=== PATIENT | female | born 1985 | race Caucasian/White ===

== ENCOUNTER 2022-02-07 07:00 | Observation (INO) | payer OTHER ==
[2022-02-07] MEDS ORDERED: ONDANSETRON 4 MG/2 ML VIAL IVP STA (07:26)
[2022-02-07] MEDS ORDERED: SODIUM CHLORIDE 0.9% 1,000 ML IV STA (07:26)
[2022-02-07] MEDS ORDERED: KETOROLAC 15 MG/ML 1 ML VIAL IVP STA (07:26)
--- NOTE | 2022-02-07 07:45 | XR ---
EXAMINATION TYPE: XR chest 2V DATE OF EXAM: 02/07/2022 COMPARISON: NONE TECHNIQUE: PA and lateral views submitted. HISTORY: Chest pain FINDINGS: The lungs are clear and there is no pneumothorax, pleural effusion, or focal pneumonia. Heart size normal. Hypertrophic change of the spine. IMPRESSION: 1. No acute process.
[2022-02-07 07:50] LABS: Basophils % (A) 0 %; Eosinophils # (A) 0.2 k/uL (0-0.7); Eosinophils % (A) 2 %; HCT 38.4 % (34.0-46.0); HGB 12.8 gm/dL (11.4-16.0); Lymphocytes # (A) 1.9 k/uL (1.0-4.8); Lymphocytes % (A) 18 %; MCHC 33.5 g/dL (31.0-37.0); MCV 86.5 fL (80.0-100.0); Monocytes # (A) 0.5 k/uL (0-1.0); Monocytes % (A) 4 %; Neutrophils % (A) 75 %; Platelet Count 269 k/uL (150-450); RBC 4.43 m/uL (3.80-5.40); RDW 12.9 % (11.5-15.5); WBC 10.6 k/uL (3.8-10.6)
[2022-02-07 08:22] LABS: ALT 15 U/L (4-34); AST 16 U/L (14-36); African American GFR (CKD) >90 (>60 ml/min/1.73 sqM); Albumin 3.6 g/dL (3.5-5.0); Alkaline Phosphatase 70 U/L (38-126); Anion Gap 7 mmol/L; Blood Urea Nitrogen 13 mg/dL (7-17); Calcium 8.8 mg/dL (8.4-10.2); Carbon Dioxide 24 mmol/L (22-30); Chloride 105 mmol/L (98-107); Glucose 170 mg/dL (74-99); Lipase 66 U/L (23-300); Magnesium 1.9 mg/dL (1.6-2.3); Non-African American GFR(CKD) >90 (>60 ml/min/1.73 sqM); Potassium 4.2 mmol/L (3.5-5.1); Sodium 136 mmol/L (137-145); Total Bilirubin 0.7 mg/dL (0.2-1.3); Total Protein 6.5 g/dL (6.3-8.2)
--- NOTE | 2022-02-07 08:23 | US ---
EXAMINATION TYPE: US gallbladder DATE OF EXAM: 02/07/2022 COMPARISON: NONE CLINICAL HISTORY: pain. chest pain EXAM MEASUREMENTS: Liver Length: 16.1 cm Gallbladder Wall: 0.4 cm CBD: 0.3 cm Right Kidney: 12.5 x 5.0 x 6.7 cm Pancreas: visualized portions wnl Liver: wnl Gallbladder: stone near neck that does not move with multiple patient positions Evidence for sonographic Yusuf's sign: Yes CBD: wnl Right Kidney: No hydronephrosis or masses seen IMPRESSION: There is a gallstone near the gallbladder neck. Gallbladder wall is mildly thickened at 4 mm correlate for mild cholecystitis.
[2022-02-07] MEDS ORDERED: NALOXONE 0.4 MG/ML 1 ML VIAL IV PRN (09:02)
[2022-02-07] MEDS ORDERED: ONDANSETRON 4 MG/2 ML VIAL IVP PRN (09:02)
--- NOTE | 2022-02-07 09:02 | ED ---
General Adult HPI - General Chief complaint: Chest Pain Stated complaint: chest pain Time Seen by Provider: 02/07/22 07:10 Source: patient, RN notes reviewed Mode of arrival: ambulatory Limitations: no limitations - History of Present Illness Initial comments: 37-year-old female presents emergency Department chief complaint right-sided abdominal pain right-sided chest pain. Patient states started around 10 PM last has been constant pain. Patient states that the pain is unalleviated feels a squeezing pain. Patient does admit slight nausea, indigestion. Patient offers no other complaints. - Related Data Allergies Allergy/AdvReac Type Severity Reaction Status Date / Time No Known Allergies Allergy Verified 02/07/22 07:08 Review of Systems ROS Statement: Those systems with pertinent positive or pertinent negative responses have been documented in the HPI. ROS Other: All systems not noted in ROS Statement are negative. Past Medical History Past Medical History: No Reported History Past Surgical History: No Surgical Hx Reported Past Psychological History: No Psychological Hx Reported Smoking Status: Current every day smoker Past Alcohol Use History: Occasional Past Drug Use History: None Reported General Exam Limitations: no limitations General appearance: alert, in no apparent distress Head exam: Present: atraumatic, normocephalic, normal inspection Eye exam: Present: normal appearance, PERRL, EOMI. Absent: scleral icterus, conjunctival injection, periorbital swelling Respiratory exam: Present: normal lung sounds bilaterally. Absent: respiratory distress, wheezes, rales, rhonchi, stridor Cardiovascular Exam: Present: regular rate, normal rhythm, normal heart sounds. Absent: systolic murmur, diastolic murmur, rubs, gallop, clicks GI/Abdominal exam: Present: soft, tenderness (Right upper quadrant), normal bowel sounds. Absent: distended, guarding, rebound, rigid Course Vital Signs 02/07/22 07:07 Temperature 97.9 F Pulse Rate 72 Respiratory 18 Rate Blood Pressure 162/96 O2 Sat by Pulse 99 Oximetry EKG Findings - EKG Comments: EKG Findings:: EKG performed at 17:17 sinus rhythm with a rate of 78 NC 149 QRS 85 QT/QTC 383/43 Medical Decision Making - Medical Decision Making Patient's ultrasound shows gallbladder wall thickening, gallstones within the neck. Patient's case discussed with Dr. Hughes in recommend nothing by mouth patient will be taken for cholecystectomy. - Lab Data Result diagrams: 02/07/22 07:30 02/07/22 07:30 Lab Results 02/07/22 02/07/22 02/07/22 Range/Units 07:30 07:30 07:30 WBC 10.6 (3.8-10.6) k/uL RBC 4.43 (3.80-5.40) m/uL Hgb 12.8 (11.4-16.0) gm/dL Hct 38.4 (34.0-46.0) % MCV 86.5 (80.0-100.0) fL MCH 29.0 (25.0-35.0) pg MCHC 33.5 (31.0-37.0) g/dL RDW 12.9 (11.5-15.5) % Plt Count 269 (150-450) k/uL MPV 7.0 Neutrophils % 75 % Lymphocytes % 18 % Monocytes % 4 % Eosinophils % 2 % Basophils % 0 % Neutrophils # 8.0 H (1.3-7.7) k/uL Lymphocytes # 1.9 (1.0-4.8) k/uL Monocytes # 0.5 (0-1.0) k/uL Eosinophils # 0.2 (0-0.7) k/uL Basophils # 0.0 (0-0.2) k/uL Sodium 136 L (137-145) mmol/L Potassium 4.2 (3.5-5.1) mmol/L Chloride 105 (98-107) mmol/L Carbon Dioxide 24 (22-30) mmol/L Anion Gap 7 mmol/L BUN 13 (7-17) mg/dL Creatinine 0.63 (0.52-1.04) mg/dL Est GFR (CKD-EPI)AfAm >90 (>60 ml/min/1.73 sqM) Est GFR (CKD-EPI)NonAf >90 (>60 ml/min/1.73 sqM) Glucose 170 H (74-99) mg/dL Calcium 8.8 (8.4-10.2) mg/dL Magnesium 1.9 (1.6-2.3) mg/dL Total Bilirubin 0.7 (0.2-1.3) mg/dL AST 16 (14-36) U/L ALT 15 (4-34) U/L Alkaline Phosphatase 70 (38-126) U/L Troponin I <0.012 (0.000-0.034) ng/mL Total Protein 6.5 (6.3-8.2) g/dL Albumin 3.6 (3.5-5.0) g/dL Lipase 66 (23-300) U/L Disposition Clinical Impression: Cholecystitis, acute with cholelithiasis Disposition: ADMITTED IP TO THIS [facility] Condition: Fair Referrals: None,Stated [Primary Care Provider] - 1-2 days Time of Disposition: 09:01
[2022-02-07] MEDS ORDERED: PIPERACILLIN-TAZOBACTAM 3.375 GM in SODIUM CHLORIDE 0.9% 100 ML IVPB STA (09:04)
[2022-02-07] MEDS: SODIUM CHLORIDE 0.9% 1,000 ML IV SCH ×2 (09:17→23:28)
[2022-02-07 09:42] LABS: Appearance,Urine Cloudy (Clear); Bacteria,Urine Rare /hpf; Bilirubin,Urine Negative (Negative); Blood,Urine Negative (Negative); Color,Urine Yellow; Glucose,Urine (UA) Trace (Negative); Hyaline Casts,Urine 1 /lpf (0-2); Ketones,Urine Negative (Negative); Leukocyte Esterase,Urine Negative (Negative); Mucus,Urine Rare /hpf; Nitrite,Urine Negative (Negative); PH, Urine 6.5 (5.0-8.0); Protein,Urine Negative (Negative); RBC,Urine <1 /hpf (0-5); Specific Gravity,Urine 1.016 (1.001-1.035); Squamous Epithelial Cell,Urine 8 /hpf (0-4); Urobilinogen,Urine <2.0 mg/dL (<2.0); WBC,Urine <1 /hpf (0-5)
[2022-02-07] MEDS: HYDROmorphone 0.5 MG/0.5 ML SYRINGE IVP PRN ×2 (12:05→20:57)
--- NOTE | 2022-02-07 12:45 | P.GSHP ---
History of Present Illness H&P Date: 02/07/22 CHIEF COMPLAINT: Abdominal pain HISTORY OF PRESENT ILLNESS: This is a 37-year-old female who presented to the hospital with complaints of right upper quadrant abdominal pain. She reports that the pain started around 10:00 last night. The pain has remained constant. She's had nausea. Denies any vomiting. Also has complained of indigestion. Gallbladder ultrasound shows evidence of gallstone near the gallbladder neck. Gallbladder wall is mildly thickened at 4 mm and reports to correlate for mild cholecystitis. Patient denies any fever chills or sweats. PAST MEDICAL HISTORY: none PAST SURGICAL HISTORY: none MEDICATIONS: See list. ALLERGIES: See list. SOCIAL HISTORY: No illicit drug use. REVIEW OF SYSTEMS: CONSTITUTIONAL: Denies fever or chills. HEENT: Denies blurred vision, vision changes, or eye pain. Denies hemoptysis CARDIOVASCULAR: Denies chest pain or pressure. RESPIRATORY: No shortness of breath. GASTROINTESTINAL: See HPI for pertinent findings HEMATOLOGIC: Denies bleeding disorders. GENITOURINARY: Denies any blood in urine or increased urinary frequency. SKIN: Denies pruitis. Denies rash. PHYSICAL EXAM: VITAL SIGNS: Reviewed GENERAL: Well-developed in no acute distress. HEENT: No sclera icterus. Extraocular movements grossly intact. Moist buccal mucosa. Head is atraumatic, normocephalic. No nasal drainage. ABDOMEN: Soft. Obese. Nondistended. Tenderness with palpation to right lower quadrant. NEUROLOGIC: Alert and oriented. Cranial nerves II through XII grossly intact. LABORATORY DATA: WBC 10.6 hemoglobin 12.8 platelets 269 sodium is 136 potassium 4.2 creatinine 0.63 magnesium 1.9 Troponin negative LFTs normal Lipase 66 IMAGING: Gallbladder ultrasound shows evidence of gallstone near the gallbladder neck. Gallbladder wall is mildly thickened at 4 mm and reports to correlate for mild cholecystitis. ASSESSMENT: 1. Acute cholecystitis 2. Cholelithiasis PLAN: -Patient scheduled for laparoscopic cholecystectomy today -Keep patient nothing by mouth -Continue antibiotics -Continue IV fluids -Continue pain medication as needed -Continue antiemetics as needed Physician Inspector Assembly note has been reviewed by physician. Signing provider agrees with the documented findings, assessment, and plan of care. Past Medical History Past Medical History: No Reported History Past Surgical History: No Surgical Hx Reported Past Psychological History: No Psychological Hx Reported Smoking Status: Current every day smoker Past Alcohol Use History: Occasional Past Drug Use History: None Reported Medications and Allergies Home Medications Medication Instructions Recorded Confirmed Type No Known Home Medications 02/07/22 02/07/22 History Allergies Allergy/AdvReac Type Severity Reaction Status Date / Time No Known Allergies Allergy Verified 02/07/22 09:11 Surgical - Exam Vital Signs Temp Pulse Resp BP Pulse Ox 97.9 F 72 18 162/96 99 02/07/22 07:07 02/07/22 07:07 02/07/22 07:07 02/07/22 07:07 02/07/22 07:07 Results - Labs 02/07/22 07:30 02/07/22 07:30 Abnormal Lab Results - Last 24 Hours (Table) 02/07/22 02/07/22 Range/Units 07:30 07:30 Neutrophils # 8.0 H (1.3-7.7) k/uL Sodium 136 L (137-145) mmol/L Glucose 170 H (74-99) mg/dL Diabetes panel 02/07/22 Range/Units 07:30 Sodium 136 L (137-145) mmol/L Potassium 4.2 (3.5-5.1) mmol/L Chloride 105 (98-107) mmol/L Carbon Dioxide 24 (22-30) mmol/L BUN 13 (7-17) mg/dL Creatinine 0.63 (0.52-1.04) mg/dL Glucose 170 H (74-99) mg/dL Calcium 8.8 (8.4-10.2) mg/dL AST 16 (14-36) U/L ALT 15 (4-34) U/L Alkaline Phosphatase 70 (38-126) U/L Total Protein 6.5 (6.3-8.2) g/dL Albumin 3.6 (3.5-5.0) g/dL Calcium panel 02/07/22 Range/Units 07:30 Calcium 8.8 (8.4-10.2) mg/dL Albumin 3.6 (3.5-5.0) g/dL Pituitary panel 02/07/22 Range/Units 07:30 Sodium 136 L (137-145) mmol/L Potassium 4.2 (3.5-5.1) mmol/L Chloride 105 (98-107) mmol/L Carbon Dioxide 24 (22-30) mmol/L BUN 13 (7-17) mg/dL Creatinine 0.63 (0.52-1.04) mg/dL Glucose 170 H (74-99) mg/dL Calcium 8.8 (8.4-10.2) mg/dL Adrenal panel 02/07/22 Range/Units 07:30 Sodium 136 L (137-145) mmol/L Potassium 4.2 (3.5-5.1) mmol/L Chloride 105 (98-107) mmol/L Carbon Dioxide 24 (22-30) mmol/L BUN 13 (7-17) mg/dL Creatinine 0.63 (0.52-1.04) mg/dL Glucose 170 H (74-99) mg/dL Calcium 8.8 (8.4-10.2) mg/dL Total Bilirubin 0.7 (0.2-1.3) mg/dL AST 16 (14-36) U/L ALT 15 (4-34) U/L Alkaline Phosphatase 70 (38-126) U/L Total Protein 6.5 (6.3-8.2) g/dL Albumin 3.6 (3.5-5.0) g/dL
[2022-02-07] MEDS: PIPERACILLIN-TAZOBACTAM 3.375 GM in SODIUM CHLORIDE 0.9% 100 ML IVPB SCH ×2 (15:42→23:25)
[2022-02-07] MEDS ORDERED: IV FLUID CONTINUATION 200 ML IV ONE (16:40)
[2022-02-07] MEDS ORDERED: LACTATED RINGERS 1,000 ML IV ONE (16:41)
[2022-02-07 16:48] LABS: Glucose,Whole Blood 82 mg/dL (75-99)
[2022-02-07] MEDS ORDERED: HEPARIN SODIUM,PORCINE/PF 5,000 UNIT/0.5 ML SYRINGE SQ ONE (16:48)
[2022-02-07] MEDS ORDERED: ONDANSETRON 4 MG/2 ML VIAL IVP ONE (16:52)
[2022-02-07] MEDS ORDERED: DEXAMETHASONE SOD PHOSPHATE 4 MG/ML 1 ML VIAL IVP ONE (16:52)
[2022-02-07] MEDS ORDERED: HEPARIN SODIUM,PORCINE 5,000 UNIT/ML 1 ML VIAL SQ ONE (16:53)
[2022-02-07] MEDS ORDERED: LIDOCAINE 2% INJ 20 MG/ML (2 ML VIAL) ONE (17:03)
[2022-02-07] MEDS ORDERED: PROPOFOL 10 MG/ML 20 ML VIAL IV ONE (17:03)
[2022-02-07] MEDS ORDERED: HYDROmorphone (PF) 1 MG/ML ONE (17:03)
[2022-02-07] MEDS ORDERED: GLYCOPYRROLATE 0.2 MG/ML 2 ML VIAL ONE (17:03)
[2022-02-07] MEDS ORDERED: ROCURONIUM 10 MG/ML (5 ML VIAL) IV ONE (17:03)
[2022-02-07] MEDS ORDERED: fentaNYL (PF) 50 MCG/ML 2 ML AMP ONE (17:03)
[2022-02-07] MEDS ORDERED: MIDAZOLAM 2 MG/2 ML VIAL ONE (17:03)
[2022-02-07] MEDS ORDERED: NEOSTIGMINE 1 MG/ML 10 ML VIAL ONE (17:03)
[2022-02-07] MEDS ORDERED: KETOROLAC 15 MG/ML 1 ML VIAL ONE (17:03)
[2022-02-07] MEDS ORDERED: BUPIVACAIN-EPI 0.25%-1:200,000 30 ML VIAL SQ ONE ×2 (17:14→17:26)
[2022-02-07] MEDS ORDERED: ONDANSETRON 4 MG TAB PO PRN (17:52)
[2022-02-07] MEDS ORDERED: HYDROmorphone 1 MG/ML 1 ML SYRINGE IVP PRN (17:52)
--- NOTE | 2022-02-07 17:58 | P.OP ---
Date of Procedure: 02/07/22 Preoperative Diagnosis: Acute cholecystitis Postoperative Diagnosis: Cholecystitis Procedure(s) Performed: Laparoscopic cholecystectomy Anesthesia: MARGO Surgeon: Shubham Hughes Estimated Blood Loss (ml): 15 Pathology: other (gall bladder) Condition: stable Disposition: PACU Operative Findings: Cholelithiasis Description of Procedure: The patient was placed on the operating table. The patient received a general endotracheal tube anesthesia. The patients abdomen was prepped and draped in the usual sterile fashion. Through an infraumbilical stab incision, the fascia of the anterior abdominal wall was grasped with a pair of Kochers and then the Veress needle was placed in the peritoneal cavity. Position of the Veress needle was confirmed with positive drop test. The abdomen was then insufflated. After adequate insufflation, the 10 mm trocar was placed in the peritoneal cavity. Following this the laparoscope was placed in the peritoneal cavity. The patient was placed in the head-up, right side up position and then a 5 mm trocar was placed in the right lateral and right subcostal position under direct visualization. A 8 mm trocar was placed in the epigastric position. The gallbladder was grasped in the fundus and infundibulum. Traction on the gallbladder was placed in the lateral and the cephalad positions. The triangle of Calot was visualized.. The cystic duct was bluntly dissected until the union of the cystic duct and common bile duct was seen. A critical view of safety was achieved. The cystic duct was then divided and sealed with the Harmonic scissors. A PDS Endoloop was then placed throughout the cystic duct stump. The cystic artery divided and sealed with the Harmonic scissors. The gallbladder was then removed from the liver bed using Harmonic scissors. The gallbladder was then extracted through the epigastric port site. Operative field was checked for any bleeding spots and Harmonic scissors was used to coagulate the liver bed. The abdomen was irrigated. The trocars were removed. The skin was closed using interrupted 3-0 Vicryl suture. Dermabond dressing were applied. The patient tolerated the procedure well.
[2022-02-07] MEDS ORDERED: SODIUM CHLORIDE 0.9% 1,000 ML IV ONE ×2 (18:23)
[2022-02-07] MEDS: HYDROcodone/APAP 7.5-325MG 1 EACH TAB PO PRN (19:35)
[2022-02-08] MEDS: HYDROmorphone 0.5 MG/0.5 ML SYRINGE IVP PRN (03:58)
[2022-02-08 07:55] VITALS: BP 153/92; PULSE 64; RESP 18; TEMP 98.5
[2022-02-08] MEDS: HYDROcodone/APAP 7.5-325MG 1 EACH TAB PO PRN (08:59)
[2022-02-08] MEDS ORDERED: ENOXAPARIN 40 MG/0.4 ML SYRINGE SQ SCH (09:00)
[2022-02-08] MEDS ORDERED: PIPERACILLIN-TAZOBACTAM 3.375 GM in SODIUM CHLORIDE 0.9% 100 ML IVPB SCH (10:00)
--- NOTE | 2022-02-08 11:35 | P.DS ---
Providers Date of admission: 02/07/22 09:03 Expected date of discharge: 02/08/22 Attending physician: Shubham Hughes Primary care physician: Stated None Hospital Course: Discharge diagnosis 1. Acute cholecystitis status post Laparoscopic cholecystectomy Hospital course This is a 37-year-old female who presented to the hospital with complaints of right upper quadrant abdominal pain. She's had nausea. Denies any vomiting. Also has complained of indigestion. Gallbladder ultrasound shows evidence of gallstone near the gallbladder neck. Gallbladder wall is mildly thickened at 4 mm and reports to correlate for mild cholecystitis. Patient is status post upper scopic cholecystectomy. She is tolerating diet. Her pain is controlled. She is having flatus. She's up and ambulating. She's afebrile. She is stable for discharge. Incision sites are clean dry and intact. Please refer to chart for any further details. Physician Social Service Agency Director note has been reviewed by physician. Signing provider agrees with the documented findings, assessment, and plan of care. Patient Condition at Discharge: Stable Plan - Discharge Summary Discharge Rx Participant: Yes New Discharge Prescriptions: New HYDROcodone/APAP 5-325MG [[place] 5-325] 1 tab PO Q6HR PRN 3 Days #12 tab PRN Reason: Pain Discharge Medication List HYDROcodone/APAP 5-325MG [[place] 5-325] 1 tab PO Q6HR PRN 3 Days #12 tab 02/08/22 [Rx] Follow up Appointment(s)/Referral(s): None,Stated [Primary Care Provider] - 1-2 days Shubham Hughes MD [STAFF PHYSICIAN] - 1 Week Activity/Diet/Wound Care/Special Instructions: No driving while taking [place] No lifting over 10 pounds Shower daily. No soaking or tub baths for 2 weeks Very light activity until you are reevaluated at your follow up appointment with your surgeon Discharge Disposition: HOME SELF-CARE
== END 2022-02-08 12:09 | disposition home or self-care (01) ==
LOC: EC 07:00 → 4SSUR 09:03
PROVIDERS: ADMIT Surgery; ATTEND Surgery
DX: K80.12 Calculus of gallbladder with acute and chronic cholecystitis without obstruction (principal); F17.200 Nicotine dependence, unspecified, uncomplicated
CPT/HCPCS: 96361; 96374; 96375; 99285; 36415; 93005; 81025 ×2; 88304; 80053; 83690; 83735; 84484; 85025; 81001; 71046; 76705; 47562; G0378 ×2; J2543 ×2; J2250; J1644; J1100; J2710; J2405; J1650; J3010; J1170 ×3; J1885; J2704; J2001

== ENCOUNTER 2022-10-05 18:18 | Emergency (ER) | payer OTHER ==
[2022-10-05] MEDS ORDERED: ACETAMINOPHEN TAB 500 MG TAB PO STA (20:34)
[2022-10-05 20:38] VITALS: RESP 18
--- NOTE | 2022-10-05 20:39 | ED ---
URI HPI - General Chief Complaint: Upper Respiratory Infection Stated Complaint: sob Time Seen by Provider: 10/05/22 20:16 Source: patient, RN notes reviewed Mode of arrival: ambulatory Limitations: no limitations - History of Present Illness Initial Comments: This is a pleasant 37-year-old female who is 21 weeks . Patient has been ill for the past few days. Patient describing a cough productive for clear sputum. Generalized body aches, low-grade fever, stuffy nose, runny nose, patient denying any pain. Denies any abdominal pain or pelvic pain. Patient denies any vaginal leakage or vaginal bleeding. Patient states her blood pressure has been running high. Patient states that she had hypertension during her first . Patient states she called her piling setter was sent here for evaluation. Patient is a previous cigarette smoker, she quit after finding out she was . No history of asthma. , Mild headache, body aches, low-grade fever, no changes in vision or hearing, no sore throat or difficulty with speech, no neck pain, no chest pain or shortness of breath, no abdominal pain, no nausea or vomiting, no changes in urination or bowel movements, no numbness or tingling, no extremity pain, no skin rashes or lesions. Denies edema Past medical, surgical, social, and family history reviewed. - Related Data Previous Rx's Medication Instructions Recorded HYDROcodone/APAP 5-325MG [Lowgap 1 tab PO Q6HR PRN 3 Days #12 tab 02/08/22 5-325] Potassium Chloride ER [K-Dur 10] 10 meq PO DAILY #7 tab 10/05/22 Allergies Allergy/AdvReac Type Severity Reaction Status Date / Time No Known Allergies Allergy Verified 03/22/22 20:56 Review of Systems ROS Statement: Those systems with pertinent positive or pertinent negative responses have been documented in the HPI. ROS Other: All systems not noted in ROS Statement are negative. Past Medical History Past Medical History: No Reported History History of Any Multi-Drug Resistant Organisms: None Reported Past Surgical History: No Surgical Hx Reported Past Psychological History: No Psychological Hx Reported Smoking Status: Current every day smoker Past Alcohol Use History: Occasional Past Drug Use History: None Reported General Exam - General Exam Comments Initial Comments: Dry cough noted, patient does not appear to be toxic. Does appear to be mildly ill. Vital signs reviewed. Patient hypertensive with systolic in the 150s. Limitations: no limitations General appearance: alert, in no apparent distress Head exam: Present: atraumatic, normocephalic, normal inspection Eye exam: Present: normal appearance, PERRL, EOMI. Absent: scleral icterus, conjunctival injection, periorbital swelling ENT exam: Present: normal exam, normal oropharynx, mucous membranes moist, TM's normal bilaterally, normal external ear exam. Absent: mucous membranes dry Neck exam: Present: normal inspection, full ROM. Absent: tenderness, meningismus, lymphadenopathy Respiratory exam: Present: normal lung sounds bilaterally. Absent: respiratory distress, wheezes, rales, rhonchi, stridor, chest wall tenderness, accessory muscle use, decreased breath sounds, prolonged expiratory Cardiovascular Exam: Present: regular rate, normal rhythm, normal heart sounds. Absent: systolic murmur, diastolic murmur, rubs, gallop, clicks GI/Abdominal exam: Present: soft, normal bowel sounds, other (Gravid uterus consistent with dates). Absent: distended, tenderness, guarding, rebound, rigid Extremities exam: Present: normal inspection, full ROM, normal capillary refill. Absent: tenderness, pedal edema, joint swelling, calf tenderness Back exam: Present: normal inspection Neurological exam: Present: alert, oriented X3, CN II-XII intact Psychiatric exam: Present: normal affect, normal mood Skin exam: Present: warm, dry, intact, normal color. Absent: rash Course Vital Signs 10/05/22 10/05/22 10/05/22 18:51 20:34 21:00 Temperature 100.4 F H Pulse Rate 96 101 H Respiratory 20 18 18 Rate Blood Pressure 159/65 O2 Sat by Pulse 99 98 Oximetry 10/05/22 21:35 Temperature Pulse Rate Respiratory Rate Blood Pressure 147/77 O2 Sat by Pulse Oximetry - Reevaluation(s) Reevaluation #1: 10/05/22 23:01 Medical record is reviewed Symptoms are improved here in the emergency department Patient is informed of results and questions answered Patient in no distress Medical Decision Making - Medical Decision Making Was pt. sent in by a medical professional or institution? @ -Yes, piling setter Did you speak to anyone other than the patient for history? @ -no Did you review nursing and triage notes? @ -Agree Were old charts reviewed? @ -no Differential Diagnosis? @ -Appears to be consistent with viral upper respiratory infection/viral bronchitis. Possible COVID-19, possible influenza, possible RSV. Less likely bacterial etiology. Does not appear to be consistent with intra-abdominal or pelvic pathology, patient has no vaginal bleeding or leakage. No adventitious lung sounds. Low-grade fever noted. This is not an all-inclusive list. EKG interpreted by me (3pts min.)? @ -[yes] What testing was considered but not performed? (CT, X-rays, U/S, labs)? Why? @ [I did consider a pelvic ultrasound. However the patient has no abdominal or pelvic pain. No vaginal leakage or vaginal bleeding. This was deferred after discussion with the patient.] What meds were considered but not given? Why? @ -[none] Did you discuss the management of the patient with other professionals? @ -[professionals i.e. Dr, PA, DIRECTOR [employer], Lab, RT, Psych Nurse, Larriman Helper, Manager Reporting, Teacher, Analytical Strategist, family service caseworker? Give summary] Did you reconcile home meds? @ -[none] Was smoking cessation discussed for >3mins.? @ -[none] Was critical care preformed (if so, how long)? @ -[none] Were there social determinants of health that impacted care today? How? (Homelessness, low income, unemployed, alcoholism, drug addiction, transportation, low edu. Level, literacy, decrease access to med. care, [facility], rehab)? @ -[Current 21 week gestation ] Was there de-escalation of care discussed even if they declined? (Discuss DNR or withdrawal of care, Hospice)? @ -[Discuss DNR or withdrawal of care, Hospice?] What co-morbidities impacted this encounter? (DM, HTN, Smoking, COPD, CAD, Cancer, CVA, Hep., AIDS, mental health diagnosis, sleep apnea, morbid obesity)? @ -[Hypertension, current ] Was patient admitted / discharged? @ -[Patient's laboratory investigations show a white blood cell count of 3100, lymphocytes 0.3, consistent with viral syndrome. Hemoglobin 11.2 hematocrit 30.5, patient is 21 weeks . Minimally low at 132. Potassium 3.2, BUN/creatinine are slightly low. Calcium 7.9. Albumin also low at 3.2 with total protein of 5.7. Urinalysis shows no significant evidence of infectious process. There are 2+ ketones. Influenza A testing is positive. All findings discussed in detail with the patient who is currently stable. We'll treat with antipyretics. We'll supplement potassium. One dose of magnesium. We'll have the patient follow up with her regular piling setter. Patient is already been started on labetalol but missed her evening dose. We'll go ahead and give that dose here, labetalol 100 mg by mouth. Concurs with this treatment plan. Patient to follow-up with her piling setter tomorrow morning by phone without fail. heart tones were normal.] Undiagnosed new problem with uncertain prognosis? @ -[none] Drug Therapy requiring intensive monitoring for toxicity (Heparin, Nitro, Insuli n, Cardizem)? @ -[none] Were any procedures done? @ -[none] Diagnosis/symptom? @ -[Influenza A, uncontrolled hypertension, hypokalemia] Acute, or Chronic, or Acute on Chronic? @ -And acute Uncomplicated (without systemic symptoms) or Complicated (systemic symptoms)? @ -Complicated Side effects of treatment? @ -[none] Exacerbation, Progression, or Severe Exacerbation] @ -[no] Poses a threat to life or bodily function? @ -Unlikely The case was discussed in detail with ED attending physician. Presentation, findings, treatment plan discussed in detail. Patient was told to return to the ER for any signs or symptoms worsen. Told to return immediately if any other problems arise. All questions answered. Treatment plan discussed. Patient in agreement Every effort has been made to ensure accuracy of this dictation. However, due to the limitations of electronic medical records and dictation devices, errors in charting still occur. Fur Nailer Dr. Sinclair - Lab Data Result diagrams: 10/05/22 21:00 10/05/22 21:00 Lab Results 10/05/22 10/05/22 10/05/22 Range/Units 18:55 21:00 21:00 WBC 3.1 L (3.8-10.6) k/uL RBC 3.66 L (3.80-5.40) m/uL Hgb 11.2 L (11.4-16.0) gm/dL Hct 30.5 L (34.0-46.0) % MCV 83.2 (80.0-100.0) fL MCH 30.6 (25.0-35.0) pg MCHC 36.7 (31.0-37.0) g/dL RDW 13.1 (11.5-15.5) % Plt Count 148 L (150-450) k/uL MPV 7.6 Neutrophils % 79 % Lymphocytes % 10 % Monocytes % 8 % Eosinophils % 1 % Basophils % 0 % Neutrophils # 2.5 (1.3-7.7) k/uL Lymphocytes # 0.3 L (1.0-4.8) k/uL Monocytes # 0.3 (0-1.0) k/uL Eosinophils # 0.0 (0-0.7) k/uL Basophils # 0.0 (0-0.2) k/uL Sodium 132 L (137-145) mmol/L Potassium 3.2 L (3.5-5.1) mmol/L Chloride 104 (98-107) mmol/L Carbon Dioxide 22 (22-30) mmol/L Anion Gap 6 mmol/L BUN 5 L (7-17) mg/dL Creatinine 0.47 L (0.52-1.04) mg/dL Est GFR (CKD-EPI)AfAm >90 (>60 ml/min/1.73 sqM) Est GFR (CKD-EPI)NonAf >90 (>60 ml/min/1.73 sqM) Glucose 105 H (74-99) mg/dL Plasma Lactic Acid Micky (0.7-2.0) mmol/L Calcium 7.9 L (8.4-10.2) mg/dL Magnesium 1.7 (1.6-2.3) mg/dL Total Bilirubin 0.4 (0.2-1.3) mg/dL AST 32 (14-36) U/L ALT 28 (4-34) U/L Alkaline Phosphatase 64 (38-126) U/L Total Protein 5.7 L (6.3-8.2) g/dL Albumin 3.2 L (3.5-5.0) g/dL Urine Color Urine Appearance (Clear) Urine pH (5.0-8.0) Ur Specific [place] (1.001-1.035) Urine Protein (Negative) Urine Glucose (UA) (Negative) Urine Ketones (Negative) Urine Blood (Negative) Urine Nitrite (Negative) Urine Bilirubin (Negative) Urine Urobilinogen (<2.0) mg/dL Ur Leukocyte Esterase (Negative) Urine RBC (0-5) /hpf Urine WBC (0-5) /hpf Ur Squamous Epith Cells (0-4) /hpf Hyaline Casts (0-2) /lpf Urine Mucus (None) /hpf Influenza Type A (PCR) Detected A (Not Detectd) Influenza Type B (PCR) Not Detected (Not Detectd) RSV (PCR) Not Detected (Not Detectd) SARS-CoV-2 (PCR) Not Detected (Not Detectd) 10/05/22 10/05/22 Range/Units 21:00 21:00 WBC (3.8-10.6) k/uL RBC (3.80-5.40) m/uL Hgb (11.4-16.0) gm/dL Hct (34.0-46.0) % MCV (80.0-100.0) fL MCH (25.0-35.0) pg MCHC (31.0-37.0) g/dL RDW (11.5-15.5) % Plt Count (150-450) k/uL MPV Neutrophils % % Lymphocytes % % Monocytes % % Eosinophils % % Basophils % % Neutrophils # (1.3-7.7) k/uL Lymphocytes # (1.0-4.8) k/uL Monocytes # (0-1.0) k/uL Eosinophils # (0-0.7) k/uL Basophils # (0-0.2) k/uL Sodium (137-145) mmol/L Potassium (3.5-5.1) mmol/L Chloride (98-107) mmol/L Carbon Dioxide (22-30) mmol/L Anion Gap mmol/L BUN (7-17) mg/dL Creatinine (0.52-1.04) mg/dL Est GFR (CKD-EPI)AfAm (>60 ml/min/1.73 sqM) Est GFR (CKD-EPI)NonAf (>60 ml/min/1.73 sqM) Glucose (74-99) mg/dL Plasma Lactic Acid Micky 0.8 (0.7-2.0) mmol/L Calcium (8.4-10.2) mg/dL Magnesium (1.6-2.3) mg/dL Total Bilirubin (0.2-1.3) mg/dL AST (14-36) U/L ALT (4-34) U/L Alkaline Phosphatase (38-126) U/L Total Protein (6.3-8.2) g/dL Albumin (3.5-5.0) g/dL Urine Color Yellow Urine Appearance Clear (Clear) Urine pH 6.5 (5.0-8.0) Ur Specific [place] 1.040 H (1.001-1.035) Urine Protein 1+ H (Negative) Urine Glucose (UA) Trace H (Negative) Urine Ketones 2+ H (Negative) Urine Blood Negative (Negative) Urine Nitrite Negative (Negative) Urine Bilirubin Negative (Negative) Urine Urobilinogen 3.0 (<2.0) mg/dL Ur Leukocyte Esterase Negative (Negative) Urine RBC <1 (0-5) /hpf Urine WBC 2 (0-5) /hpf Ur Squamous Epith Cells 1 (0-4) /hpf Hyaline Casts 1 (0-2) /lpf Urine Mucus Moderate H (None) /hpf Influenza Type A (PCR) (Not Detectd) Influenza Type B (PCR) (Not Detectd) RSV (PCR) (Not Detectd) SARS-CoV-2 (PCR) (Not Detectd) - EKG Data EKG Comments: EKG read by me at 2046 reveals normal sinus rhythm with sinus arrhythmia, normal axis, rate of 95, normal intervals and no acute ST or T wave changes, normal q rsl morphology. Disposition Clinical Impression: Influenza A, Hypokalemia, Hypertension, poor control Narrative: Current second-tier trimester Disposition: HOME SELF-CARE Condition: Good Instructions (If sedation given, give patient instructions): Influenza (ED), Hypokalemia (ED), Hypertension (ED), Potassium Content of Foods List (ED) Additional Instructions: Follow-up with your regular physician as directed. Return to the ER immediately if any symptoms worsen, new symptoms arise, or any other problems develop. Call Dr. Shah tomorrow morning to schedule a follow-up appointment. You'll also need to have your potassium rechecked. Stay adequately hydrated. Review potassium-containing foods. Take the supplementation as directed. Continue your blood pressure medication as directed. Use [id number] Tylenol as directed on the bottle for fever control. Is patient prescribed a controlled substance at d/c from ED?: No Referrals: Linda Shah MD [STAFF PHYSICIAN] - 10/09/22 Time of Disposition: 23:08
[2022-10-05] MEDS: SODIUM CHLORIDE 0.9% 1,000 ML IV STA ×2 (21:29→23:18)
[2022-10-05 21:49] LABS: ALT 28 U/L (4-34); AST 32 U/L (14-36); African American GFR (CKD) >90 (>60 ml/min/1.73 sqM); Albumin 3.2 g/dL (3.5-5.0); Alkaline Phosphatase 64 U/L (38-126); Anion Gap 6 mmol/L; Blood Urea Nitrogen 5 mg/dL (7-17); Calcium 7.9 mg/dL (8.4-10.2); Carbon Dioxide 22 mmol/L (22-30); Chloride 104 mmol/L (98-107); Glucose 105 mg/dL (74-99); Magnesium 1.7 mg/dL (1.6-2.3); Non-African American GFR(CKD) >90 (>60 ml/min/1.73 sqM); Potassium 3.2 mmol/L (3.5-5.1); Sodium 132 mmol/L (137-145); Total Bilirubin 0.4 mg/dL (0.2-1.3); Total Protein 5.7 g/dL (6.3-8.2)
[2022-10-05 22:08] LABS: Basophils % (A) 0 %; Eosinophils % (A) 1 %; HCT 30.5 % (34.0-46.0); HGB 11.2 gm/dL (11.4-16.0); Lymphocytes # (A) 0.3 k/uL (1.0-4.8); Lymphocytes % (A) 10 %; MCH 30.6 pg (25.0-35.0); MCHC 36.7 g/dL (31.0-37.0); MCV 83.2 fL (80.0-100.0); Mean Platelet Volume 7.6; Monocytes # (A) 0.3 k/uL (0-1.0); Monocytes % (A) 8 %; Neutrophils # (A) 2.5 k/uL (1.3-7.7); Neutrophils % (A) 79 %; Platelet Count 148 k/uL (150-450); RBC 3.66 m/uL (3.80-5.40); RDW 13.1 % (11.5-15.5); WBC 3.1 k/uL (3.8-10.6)
[2022-10-05 22:25] LABS: Appearance,Urine Clear (Clear); Bilirubin,Urine Negative (Negative); Blood,Urine Negative (Negative); Color,Urine Yellow; Glucose,Urine (UA) Trace (Negative); Hyaline Casts,Urine 1 /lpf (0-2); Ketones,Urine 2+ (Negative); Leukocyte Esterase,Urine Negative (Negative); Mucus,Urine Moderate /hpf; Nitrite,Urine Negative (Negative); PH, Urine 6.5 (5.0-8.0); Protein,Urine 1+ (Negative); RBC,Urine <1 /hpf (0-5); Squamous Epithelial Cell,Urine 1 /hpf (0-4); WBC,Urine 2 /hpf (0-5)
[2022-10-05] MEDS ORDERED: MAGNESIUM SULFATE-D5W PMX 1 GM in DEXTROSE/WATER 1 100ML.BAG IVPB ONE (22:56)
[2022-10-05] MEDS ORDERED: POTASSIUM CHLORIDE ER 20 MEQ TAB.ER PO STA (22:56)
[2022-10-05] MEDS ORDERED: LABETALOL 200 MG TAB PO STA (23:01)
[2022-10-06 00:23] VITALS: BP 122/63; PULSE 87; TEMP 98.4
== END 2022-10-06 00:23 | disposition home or self-care (01) ==
LOC: EC 18:18
DX: O98.512 Other viral diseases complicating pregnancy, second trimester (principal); J10.1 Influenza due to other identified influenza virus with other respiratory manifestations; O99.282 Endocrine, nutritional and metabolic diseases complicating pregnancy, second trimester; E87.6 Hypokalemia; O13.2 Gestational [pregnancy-induced] hypertension without significant proteinuria, second trimester; O99.332 Smoking (tobacco) complicating pregnancy, second trimester; F17.200 Nicotine dependence, unspecified, uncomplicated; Z3A.21 21 weeks gestation of pregnancy; Z20.822 Contact with and (suspected) exposure to COVID-19
CPT/HCPCS: 36415; 80053; 83605; 83735; 85025; 81001; 87636; 99285; 96365; 96361 ×2; J3475

== ENCOUNTER 2022-12-18 20:05 | Outpatient (CLI) | payer OTHER ==
[2022-12-18] MEDS ORDERED: ACETAMINOPHEN TAB 325 MG TAB PO STA (21:24)
[2022-12-18 21:53] LABS: Basophils % (A) 0 %; Eosinophils # (A) 0.1 k/uL (0-0.7); Eosinophils % (A) 1 %; HCT 32.3 % (34.0-46.0); HGB 11.2 gm/dL (11.4-16.0); Lymphocytes # (A) 1.8 k/uL (1.0-4.8); Lymphocytes % (A) 21 %; MCH 28.9 pg (25.0-35.0); MCHC 34.6 g/dL (31.0-37.0); MCV 83.7 fL (80.0-100.0); Mean Platelet Volume 7.3; Monocytes # (A) 0.4 k/uL (0-1.0); Monocytes % (A) 5 %; Neutrophils # (A) 5.9 k/uL (1.3-7.7); Neutrophils % (A) 71 %; Platelet Count 226 k/uL (150-450); Poikilocytosis Slight; RBC 3.86 m/uL (3.80-5.40); RDW 14.2 % (11.5-15.5); WBC 8.3 k/uL (3.8-10.6)
[2022-12-18 22:01] LABS: ALT 18 U/L (4-34); AST 15 U/L (14-36); African American GFR (CKD) >90 (>60 ml/min/1.73 sqM); Blood Urea Nitrogen 6 mg/dL (7-17); LDH 375 U/L (313-618); Non-African American GFR(CKD) >90 (>60 ml/min/1.73 sqM); Uric Acid 2.1 mg/dL (3.7-7.4)
[2022-12-18 22:21] LABS: Appearance,Urine Clear (Clear); Bilirubin,Urine Negative (Negative); Blood,Urine Negative (Negative); Color,Urine Yellow; Glucose,Urine (UA) Negative (Negative); Ketones,Urine Negative (Negative); Leukocyte Esterase,Urine Negative (Negative); Nitrite,Urine Negative (Negative); PH, Urine 6.5 (5.0-8.0); Protein,Urine Negative (Negative); Urobilinogen,Urine <2.0 mg/dL (<2.0)
[2022-12-18 22:50] LABS: Creatinine,Urine Random 59.3 mg/dL; Protein/Creatinine Ratio,Urine 0.169
[2022-12-18 23:41] VITALS: BP 152/72; PULSE 80; RESP 15; TEMP 97.6
--- NOTE | 2023-01-02 09:50 | P.MSEPDOC ---
Presenting Problems - Arrival Data Date of Arrival on Unit: 12/18/22 Time of Arrival on Unit: 20:05 Mode of Transport: Ambulatory - Complaint OB-Reason for Admission/Chief Complaint: Scheduled Comment: Pt presents to triage with c/o pain and pressure on her lower left side of her. abdomen. Pt states she fell on ice on Sunday and twisted to fall on her bottom to. avoid falling on her stomach but has felt pain since. Pt has not taken anything for. pain. Pt rates pain 9 out of 10 Medical History - Information : 5 Para: 2 - Gestational Age Gestational Age by JEROD (wks/days): 30 Weeks and 6 Days - History Complications: Chronic HTN, GDM Review of Systems - Review of Systems Constitutional: No problems Breast: No problems ENT: No problems Cardiovascular: No problems Respiratory: No problems Gastrointestinal: No problems Genitourinary: No problems Musculoskeletal: No problems Neurological: No problems Skin: No problems Comment: Bilateral leg swelling no pitting Vital Signs - Temperature Temperature: 97.6 F Temperature Source: Temporal Artery Scan - Pulse Pulse Oximetery Pulse Rate: 80 Pulse Assessment Method: Automatic Cuff - Respirations Respiratory Rate: 15 Oxygen Delivery Method: Room Air O2 Sat by Pulse Oximetry: 96 - Blood Pressure Right Arm Blood Pressure: 152/72 Blood Pressure Mean: 98 Blood Pressure Source: Automatic Cuff Medical Screen Scoring - Assessment - Baby A Baseline FHR: 125 Heart Rate - NICHD Category: Category I (Normal) NST: Reactive Physician Notification - Physician Notified Physician Notified Date: 12/18/22 Physician Notified Time: 21:51 Physician: Mojgan Barry New Order Received: Yes - Notification Comment Comment: Dr. Barry gave RN orders to discharge patient and call Dr. Miller office. first thing tomorrow morning for an ultrasound. Patient stated she will take Labetalol. when she gets home because it is due. Patient ambulated out of triage S/O was at bedside. for some of patients stay in triage but then left before discharge. Maternal Triage Index - Urgent/Priority 2 Urgent Priority 2: Yes Provider Notified: Mojgan Barry Provider Notified Time: 21:11 Criteria Met for Priority 2: Pt presents to triage with c/o pain and pressure on her lower left side of her. abdomen. Pt states she fell on ice on Sunday and twisted to fall on her bottom to. avoid falling on her stomach but has felt pain since. Pt has not taken anything for. pain. Pt rates pain [address] Barry aware via phone call [phone] patients hx, BP, FHR, contractions,. pain and characterists of patients pain. Dr. Barry aware of BP and that patient is. being treated for HTN in with Labetalol 200mg BID. Orders to draw PIH labs. and urine give Tylenol 650mg tab and call Dr. Barry with lab results. Disposition - Disposition OB Disposition: Discharge to home Discharge Date: 12/18/22 Discharge Time: 23:00 I agree with the RN Medical Screening Exam: Yes Case reviewed; plan agreed upon as documented in EMR&OBIX.: Yes Diagnosis: maternal fall
== END 2022-12-18 23:00 | disposition home or self-care (01) ==
LOC: FBPOP 20:05
PROVIDERS: ATTEND Obstetrics & Gynecology
DX: O9A.213 Injury, poisoning and certain other consequences of external causes complicating pregnancy, third trimester (principal); O24.419 Gestational diabetes mellitus in pregnancy, unspecified control; R10.30 Lower abdominal pain, unspecified; W00.0XXA Fall on same level due to ice and snow, initial encounter; O13.3 Gestational [pregnancy-induced] hypertension without significant proteinuria, third trimester; Z3A.30 30 weeks gestation of pregnancy
CPT/HCPCS: 59025; 82570; 84156; 82565; 83615; 84450; 84460; 84520; 84550; 85025; 81003; G0463; 99213

== ENCOUNTER 2023-02-05 11:56 | Outpatient (CLI) | payer OTHER ==
[2023-02-05 12:16] LABS: Glucose,Whole Blood 161 mg/dL (70-110)
[2023-02-05] MEDS ORDERED: ACETAMINOPHEN TAB 500 MG TAB PO STA (12:44)
[2023-02-05 13:27] LABS: Basophils % (A) 0 %; Eosinophils # (A) 0.1 k/uL (0-0.7); Eosinophils % (A) 1 %; HGB 11.2 gm/dL (11.4-16.0); Lymphocytes # (A) 1.3 k/uL (1.0-4.8); Lymphocytes % (A) 17 %; MCH 28.4 pg (25.0-35.0); MCHC 34.1 g/dL (31.0-37.0); MCV 83.4 fL (80.0-100.0); Mean Platelet Volume 7.2; Monocytes # (A) 0.3 k/uL (0-1.0); Monocytes % (A) 4 %; Neutrophils # (A) 5.7 k/uL (1.3-7.7); Neutrophils % (A) 76 %; Platelet Count 220 k/uL (150-450); RBC 3.95 m/uL (3.80-5.40); RDW 14.1 % (11.5-15.5); WBC 7.4 k/uL (3.8-10.6)
[2023-02-05 13:36] LABS: Uric Acid 2.2 mg/dL (3.7-7.4)
[2023-02-05 14:03] VITALS: BP 142/70; PULSE 82; RESP 18; TEMP 97.4
--- NOTE | 2023-02-19 08:01 | P.MSEPDOC ---
Presenting Problems - Arrival Data Date of Arrival on Unit: 02/05/23 Time of Arrival on Unit: 11:56 Mode of Transport: Ambulatory - Complaint OB-Reason for Admission/Chief Complaint: Headache, Elevated Blood Pressure Comment: Patient presents to unit with elevated home blood pressures, states she has a history of chronic hypertension and is on labetolol at home, has had a headache x2 days with no relief, has noted increased swelling in her feet, and has been feeling foggy, denies epigastric pain, blurry vision, dizziness, or nausea. Reflexes are WNL with no clonus present Medical History - Information : 3 Para: 2 Term: 2 : 0 Abortions: Spontaneous or Elective: 0 Number of Living Children: 2 - Gestational Age Gestational Age by JEROD (wks/days): 37 Weeks and 5 Days - History Complications: Chronic HTN, GDM, Prior Comment: Patient GDM- on Insulin bs 161 Review of Systems - Review of Systems Constitutional: No problems Breast: No problems ENT: No problems Cardiovascular: No problems Respiratory: No problems Gastrointestinal: No problems Genitourinary: No problems Musculoskeletal: No problems Neurological: No problems Skin: No problems Vital Signs - Temperature Temperature: 97.4 F Temperature Source: Temporal Artery Scan - Pulse Pulse Oximetery Pulse Rate: 82 Pulse Assessment Method: Pulse Oximetry - Respirations Respiratory Rate: 18 Oxygen Delivery Method: Room Air O2 Sat by Pulse Oximetry: 94 - Blood Pressure Sitting Blood Pressure: 142/70 Blood Pressure Mean: 94 Blood Pressure Source: Automatic Cuff Medical Screen Scoring - Cervical Exam Membranes: Intact - Uterine Contractions Resting: Soft to palpation - Assessment - Baby A Baseline FHR: 130 Heart Rate - NICHD Category: Category I (Normal) NST: Reactive Physician Notification - Physician Notified Physician Notified Date: 02/05/23 Physician Notified Time: 12:42 Physician: Linda Shah Order Received: Yes - Notification Comment Comment: Orders given to perform serial blood pressures, administer 200 additional mg of labetolol with patient's report of only taking 200mg BID to equate to her 400mg BID ordered dose, administer tylenol 1000mg PO once for the headache, obtain a reative NST, and collect and send labs: uric acid, cbc, AST, ALT. Call physician with report. 1327: Dr. Shah called with report that labs have not returned serial blood pressures WNL, reactive NST obtained, discussed that patient has confirmed she is taking 400mg BID and she did actually take her ordered dose this am, so 200mg additional dose not given. 1342: Labs reported to physician WNL orders given to discharge patient home with instructions and for her to keep her regularly scheduled appt for tomorrow. Maternal Triage Index - Prompt/Priority 3 Prompt Priority 3: Yes Criteria Met for Priority 3: 37 5/7, presents with elevated home blood pressures and headache x2 days, states she has noted some increased swelling and feels foggy has a history of chronic HTN and GDM, reflexes within normal limits, no clonus noted, no blurred vision, epigastric pain, or nausea reported by the patient. No edema noted in bilateral pedals. Serial blood pressures performed, 131/70, 121/58, 124/60... Disposition - Disposition OB Disposition: Discharge to home, Written follow up instructions reviewed Discharge Date: 02/05/23 Discharge Time: 13:46 I agree with the RN Medical Screening Exam: Yes Case reviewed; plan agreed upon as documented in EMR&OBIX.: Yes Diagnosis: RELATED CONDITIONS, UNSPECIFIED, THIRD TRIMESTER
== END 2023-02-05 13:46 | disposition home or self-care (01) ==
LOC: FBPOP 11:56
PROVIDERS: ATTEND Obstetrics & Gynecology
DX: O26.893 Other specified pregnancy related conditions, third trimester (principal); O13.3 Gestational [pregnancy-induced] hypertension without significant proteinuria, third trimester; Z3A.37 37 weeks gestation of pregnancy; O24.420 Gestational diabetes mellitus in childbirth, diet controlled; O34.219 Maternal care for unspecified type scar from previous cesarean delivery; Z79.4 Long term (current) use of insulin
CPT/HCPCS: 59025; 84450; 84460; 84550; 85025; G0463; 99215

== ENCOUNTER 2023-02-12 19:09 | Inpatient (IN) | payer OTHER ==
[2023-02-12] MEDS ORDERED: hydrALAZINE HCL 20 MG/ML 1 ML VIAL IVP PRN (19:39)
[2023-02-12] MEDS ORDERED: CALCIUM GLUCONATE 1 GM/10 ML VIAL IV PRN (19:39)
[2023-02-12] MEDS ORDERED: LABETALOL 5 MG/ML VIAL MDV IVP PRN ×3 (19:39)
[2023-02-12] MEDS ORDERED: HYDROcodone/APAP 5-325MG 1 EACH TAB PO PRN (19:47)
--- NOTE | 2023-02-12 19:52 | P.HPOB ---
History of Present Illness H&P Date: 02/12/23 Chief Complaint: preeclampsia 38-year-old status post repeat section proximally 5 days ago. Patient was being treated for hypertension during the and was on labetalol 400 twice daily. Patient's blood pressures normalized initially and patient was discharged home without concern. Patient states this evening she noted some low back pain that shot up to the base of her neck and is currently gone. Patient then took her blood pressure which was noted to be elevated into the 190s over high 90s. Patient was encouraged to present to the hospital for workup. Initial blood pressure here 211/92 followed by 190s/91. Patient denies signs or symptoms of preeclampsia currently. Patient states her lochia is minimal. Review of Systems Constitutional: Reports fatigue, Denies chills, Denies fever Ears, nose, mouth and throat: Denies headache Cardiovascular: Reports leg edema Respiratory: Denies dyspnea Gastrointestinal: Denies constipation, Denies diarrhea, Denies nausea, Denies vomiting Genitourinary: Reports Past Medical History Past Medical History: No Reported History Additional Past Medical History / Comment(s): gestationals diabetes, pre eclampsia History of Any Multi-Drug Resistant Organisms: None Reported Past Surgical History: No Surgical Hx Reported Additional Past Surgical History / Comment(s): c section x2 Past Anesthesia/Blood Transfusion Reactions: No Reported Reaction Past Psychological History: No Psychological Hx Reported Smoking Status: Never smoker - Past Family History Mother Family Medical History: No Reported History Medications and Allergies Home Medications Medication Instructions Recorded Confirmed Type Labetalol [Trandate] 100 mg PO BID 10/16/22 02/12/23 History Acetaminophen Tab [Tylenol Tab] 1,000 mg PO Q6HR 02/12/23 02/12/23 History HYDROcodone/APAP 5-325MG [Smiley 1 tab PO ONCE PRN 02/12/23 02/12/23 History 5-325] Allergies Allergy/AdvReac Type Severity Reaction Status Date / Time No Known Allergies Allergy Verified 02/12/23 19:38 Exam Osteopathic Statement: *. No significant issues noted on an osteopathic structural exam other than those noted in the History and Physical/Consult. 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 Patient is currently taking labetalol 100 mg twice daily, elevated blood pressures noted at home therefore patient presented to triage. Patient was noted with elevated blood pressures in severe range therefore magnesium infusion was begun. Pre-Lopez labs are drawn. Urinary Almeida catheter will be placed. Patient is counseled on plan of care given preeclampsia diagnosis. Multiple questions are answered and patient states understanding.
[2023-02-12] MEDS ORDERED: MAGNESIUM SULFATE-WATER PMX 4 GM in WATER FOR INJECTION 1 100ML.BAG IVPB ONE (20:00)
[2023-02-12] MEDS: LACTATED RINGERS 1,000 ML IV SCH (20:00)
[2023-02-12 20:10] LABS: Basophils % (A) 0 %; Eosinophils # (A) 0.1 k/uL (0-0.7); Eosinophils % (A) 2 %; HCT 32.4 % (34.0-46.0); HGB 10.9 gm/dL (11.4-16.0); Lymphocytes # (A) 1.5 k/uL (1.0-4.8); Lymphocytes % (A) 22 %; MCH 28.3 pg (25.0-35.0); MCHC 33.5 g/dL (31.0-37.0); MCV 84.5 fL (80.0-100.0); Mean Platelet Volume 6.8; Monocytes # (A) 0.4 k/uL (0-1.0); Monocytes % (A) 6 %; Neutrophils # (A) 4.5 k/uL (1.3-7.7); Neutrophils % (A) 68 %; Platelet Count 312 k/uL (150-450); RBC 3.84 m/uL (3.80-5.40); RDW 13.5 % (11.5-15.5); WBC 6.7 k/uL (3.8-10.6)
[2023-02-12 20:26] LABS: ALT 20 U/L (4-34); AST 21 U/L (14-36); African American GFR (CKD) >90 (>60 ml/min/1.73 sqM); Appearance,Urine Clear (Clear); Bilirubin,Urine Negative (Negative); Blood Urea Nitrogen 12 mg/dL (7-17); Blood,Urine Moderate (Negative); Color,Urine Yellow; Glucose,Urine (UA) Negative (Negative); Ketones,Urine Negative (Negative); LDH 240 U/L (120-246); Leukocyte Esterase,Urine Negative (Negative); Mucus,Urine Rare /hpf; Nitrite,Urine Negative (Negative); Non-African American GFR(CKD) >90 (>60 ml/min/1.73 sqM); Protein,Urine Negative (Negative); RBC,Urine 9 /hpf (0-5); Specific Gravity,Urine 1.024 (1.001-1.035); Uric Acid 3.3 mg/dL (3.7-7.4); Urobilinogen,Urine <2.0 mg/dL (<2.0); WBC,Urine 1 /hpf (0-5)
[2023-02-12] MEDS: MAGNESIUM SULFATE-WATER PMX 20 GM in WATER FOR INJECTION 1 500ML.BAG IV SCH (20:34)
[2023-02-12] MEDS ORDERED: LABETALOL 100 MG TAB PO SCH (21:00)
[2023-02-12 21:03] LABS: Creatinine,Urine Random 104.3 mg/dL; Protein/Creatinine Ratio,Urine 0.077
[2023-02-12 21:05] LABS: Creatinine,Urine Random 102.6 mg/dL
[2023-02-12] MEDS: ACETAMINOPHEN TAB 500 MG TAB PO SCH (22:57)
[2023-02-13] MEDS: IBUPROFEN 600 MG TAB PO PRN ×2 (02:20→09:02)
[2023-02-13] MEDS ORDERED: NIFEdipine 10 MG CAP PO ONE (06:39)
[2023-02-13] MEDS: ACETAMINOPHEN TAB 500 MG TAB PO SCH ×3 (06:57→22:28)
[2023-02-13] MEDS: MAGNESIUM SULFATE-WATER PMX 20 GM in WATER FOR INJECTION 1 500ML.BAG IV SCH (07:35)
[2023-02-13] MEDS: LACTATED RINGERS 1,000 ML IV SCH (07:36)
--- NOTE | 2023-02-13 08:11 | P.PN ---
Subjective Progress Note Date: 02/13/23 Principal diagnosis: Status post section 6 days ago, readmission for hypertension, preeclamptic labs in the normal range Patient still has a low-grade headache, otherwise no complaints. Objective - Vital Signs Vital signs: Vital Signs Temp 96.9 F L 02/13/23 04:00 Pulse 65 02/13/23 07:00 Resp 16 02/13/23 07:00 BP 172/82 02/13/23 07:00 Pulse Ox 95 02/13/23 07:00 FiO2 Intake & Output 02/12/23 02/13/23 02/13/23 18:59 06:59 18:59 Intake Total 1100 100 Output Total 1600 200 Balance -500 -100 Weight 122.47 kg Intake: Intake, IV Titration 500 Amount Magnesium Sulfate-Water 500 Pmx 20 gm In Water For Injection 1 500ml.bag @ 2 GM/HR 50 mls/hr IV .Q10H ROBBIE Rx#:[id number] Oral 600 100 Output: Urine 1600 200 - Constitutional General appearance: Present: morbidly obese - EENT Eyes: Present: PERRLA - Neck Neck: Present: normal ROM - Respiratory Respiratory: bilateral: CTA - Cardiovascular Rhythm: regular - Gastrointestinal Gastrointestinal Comment(s): Low transverse incision intact, Steri-Strips applied. Fundus firm, midline, 16 week size. Minimal lochia rubra General gastrointestinal: Present: normal bowel sounds - Neurologic Neurologic: Present: CNII-XII intact - Musculoskeletal Musculoskeletal: Present: strength equal bilaterally - Psychiatric Psychiatric: Present: A&O x's 3, appropriate affect, intact judgment & insight - Labs CBC & Chem 7: 02/12/23 19:55 02/12/23 19:55 Labs: Abnormal Lab Results - Last 24 Hours (Table) 02/12/23 02/12/23 02/12/23 Range/Units 19:55 19:55 19:55 Hgb 10.9 L (11.4-16.0) gm/dL Hct 32.4 L (34.0-46.0) % Creatinine 0.46 L (0.52-1.04) mg/dL Uric Acid 3.3 L (3.7-7.4) mg/dL Urine Blood Moderate H (Negative) Urine RBC 9 H (0-5) /hpf Urine Mucus Rare H (None) /hpf Assessment and Plan Assessment: 6 days status post section, readmission last night with systolic blood pressure 210, on labetalol 200 mg twice a day. Currently on magnesium sulfate. Plan: I switched patient to Procardia 60 mg this morning, she remains hypertensive with a blood pressure of 177/82. I have left a voicemail for our hospitalist team for recommendations. Consider Lasix for 2+ peripheral edema. Further recommendations pending medical consult. Time with Patient: Less than 30
[2023-02-13] MEDS ORDERED: hydrALAZINE HCL 20 MG/ML 1 ML VIAL IVP STA (08:50)
[2023-02-13] MEDS ORDERED: FUROSEMIDE 10 MG/ML 2 ML VIAL IV STA (08:55)
--- NOTE | 2023-02-13 11:25 | P.CONS ---
History of Present Illness - Reason for Consult Consult date: 02/13/23 - History of Present Illness Patient is a 38-year-old female with recent history of section 5 days ago presenting with hypertensive urgency. She claims that she had gestational hypertension, and her blood pressure was stable around systolic 150s when she was discharged. She was discharged on labetalol, and was home for only 1 day. She started notice sharp pain in her cervical spine, which prompted her to check her blood pressure, and he was in the systolics of 190. She then presented to [facility]. Currently she is complaining of mild lower extremity edema which is slowly worsening. However, she denies any chest pain, shortness of breath, abdominal pain, nausea, vomiting, vision changes, headaches, urinary or bowel complaints. Currently she has a urinary catheter in place. [facility] physicians consulted for hypertension management. As of now she is received 20 mg IV labetalol yesterday, 300 mg oral labetalol yesterday, nifedipine XL 60 milligrams this morning. Her blood pressure continues to stay in 170s systolic. She claims that she had 2 other pregnancies, and deltoid with preeclampsia during one of them. She does not take any antihypertensives at home. Her blood pressure was normal prior to this . She has family history of brain aneurysms as well as gestational hypertension, sister also had gestational hypertension and possibly has stroke secondary to that. This morning, blood pressure was 177/82, heart rate 76, saturating 90% on room air, temperature 98.3, respiratory rate 16. Urinalysis did not show any protein, did see 9 RBCs, creatinine 0.46, normal LFTs, hemoglobin 10.9. Pertinent positives and negatives as discussed in HPI, a complete review of systems was performed and all other systems are negative. Patient seen and examined at bedside. Vital signs reviewed General: nontoxic, no distress, appears at stated age Derm: warm, dry Head: atraumatic, normocephalic, symmetric Eyes: EOMI, no lid lag, anicteric sclera, pupils equal round reactive to light ENT: Nose and ears atraumatic Neck: No thyromegaly, supple Mouth: no lip lesion, mucus membranes moist Cardiovascular: S1S2 reg, no murmur, nonpitting lower extremity edema bilaterally Lungs: clear to auscultation bilateral, no rhonchi, no rales, no wheeze, no accessory muscle use Abdominal: soft, nontender to palpation, no guarding, no appreciable organomegaly Ext: no gross muscle atrophy, muscle strength muscle strength 5 out of 5 in all 4 extremities, no contractures Neuro: CN II-XII grossly intact Psych: Alert, oriented, appropriate affect Assessment/Plan: malignant hypertension Lower extremity edema Status post Cervical neck pain -Patient was given 10 mg IV hydralazine this morning, and 20 of IV Lasix -Blood pressure is improving, currently systolics of 150s -Goal blood pressure is <140/90 -Urinalysis did not show any proteinuria, did show microhematuria, maybe secondary to lochia -Had extensive discussion with primary service, will discontinue IV fluids and magnesium sulfate -Started on hydralazine 25 mg 3 times a day oral, and nifedipine 10 mg oral 3 times a day -Labetalol discontinued -Pain control per primary service I will closely monitor blood pressure throughout the day, and and chest antihypertensives accordingly. Thank you for allowing us to participate in the care of this pleasant patient. Do not hesitate to contact us with questions. Someone can be reached from the [facility] hospitalist group all hours of the day at [phone] or via [employer]. Past Medical History Past Medical History: No Reported History Additional Past Medical History / Comment(s): gestationals diabetes, pre eclampsia History of Any Multi-Drug Resistant Organisms: None Reported Past Surgical History: No Surgical Hx Reported Additional Past Surgical History / Comment(s): c section x2 Past Anesthesia/Blood Transfusion Reactions: No Reported Reaction Past Psychological History: No Psychological Hx Reported Smoking Status: Never smoker - Past Family History Mother Family Medical History: No Reported History Medications and Allergies Home Medications Medication Instructions Recorded Confirmed Type Labetalol [Trandate] 100 mg PO BID 10/16/22 02/12/23 History Acetaminophen Tab [Tylenol Tab] 1,000 mg PO Q6HR 02/12/23 02/12/23 History HYDROcodone/APAP 5-325MG [[place] 1 tab PO ONCE PRN 02/12/23 02/12/23 History 5-325] Allergies Allergy/AdvReac Type Severity Reaction Status Date / Time No Known Allergies Allergy Verified 02/12/23 19:38 Physical Exam Vitals: Vital Signs Temp Pulse Resp BP Pulse Ox 02/13/23 11:00 159/75 02/13/23 10:00 159/91 02/13/23 09:00 182/82 02/13/23 08:00 98.3 F 76 16 177/82 100 02/13/23 07:00 65 16 172/82 95 02/13/23 06:00 70 18 167/83 97 02/13/23 05:00 65 16 179/85 95 02/13/23 04:00 96.9 F L 64 16 159/77 95 02/13/23 03:00 73 18 164/78 95 02/13/23 02:00 69 17 182/88 96 02/13/23 01:00 62 15 180/90 95 02/13/23 00:00 66 16 176/88 96 02/12/23 23:00 68 16 176/83 95 02/12/23 22:00 72 16 164/75 95 02/12/23 21:30 72 16 163/77 95 02/12/23 21:00 70 16 161/78 96 02/12/23 20:45 72 16 159/75 95 02/12/23 20:30 70 16 174/82 95 02/12/23 20:15 97.6 F 68 16 174/84 95 02/12/23 20:10 181/81 02/12/23 20:00 200/93 02/12/23 19:37 97.7 F 65 16 191/91 97 02/12/23 19:24 97.7 F 65 16 211/91 97 Intake and Output 02/12/23 02/13/23 02/13/23 22:59 06:59 14:59 Intake Total 1100 370 Output Total 275 1325 2500 Balance -275 -122 -213 Intake: IV 125 Invasive Line 1 125 Intake, IV Titration 500 125 Amount Lactated Ringers 1,000 ml 75 @ 75 mls/hr IV .[id number] [facility] Rx#:[id number] Magnesium Sulfate-Water 500 Pmx 20 gm In Water For Injection 1 500ml.bag @ 2 GM/HR 50 mls/hr IV .Q10H [facility] Rx#:[id number] Magnesium Sulfate-Water 50 Pmx 4 gm In Water For Injection 1 100ml.bag @ 300 mls/hr IVPB ONCE ONE Rx#:[id number] Oral 600 120 Output: Urine 275 1325 2500 Other: Weight 122.47 kg Results CBC & Chem 7: 02/12/23 19:55 02/12/23 19:55 Labs: Abnormal Lab Results - Last 24 Hours (Table) 02/12/23 02/12/23 02/12/23 Range/Units 19:55 19:55 19:55 Hgb 10.9 L (11.4-16.0) gm/dL Hct 32.4 L (34.0-46.0) % Creatinine 0.46 L (0.52-1.04) mg/dL Uric Acid 3.3 L (3.7-7.4) mg/dL Urine Blood Moderate H (Negative) Urine RBC 9 H (0-5) /hpf Urine Mucus Rare H (None) /hpf
[2023-02-13] MEDS ORDERED: diphenhydrAMINE 50 MG/ML 1 ML VIAL IVP STA (11:26)
[2023-02-13] MEDS ORDERED: KETOROLAC 15 MG/ML 1 ML VIAL IVP STA (11:26)
[2023-02-13] MEDS ORDERED: PROCHLORPERAZINE INJ 10 MG/2 ML VIAL IVP PRN (11:26)
[2023-02-13] MEDS: NIFEdipine 10 MG CAP PO SCH ×2 (15:49→22:28)
[2023-02-13] MEDS: hydrALAZINE HCL 25 MG TAB PO SCH ×2 (15:50→22:28)
[2023-02-14] MEDS: ACETAMINOPHEN TAB 500 MG TAB PO SCH ×3 (04:33→11:50)
[2023-02-14 07:43] LABS: African American GFR (CKD) >90 (>60 ml/min/1.73 sqM); Anion Gap 7 mmol/L; Blood Urea Nitrogen 8 mg/dL (7-17); Calcium 7.9 mg/dL (8.4-10.2); Carbon Dioxide 23 mmol/L (22-30); Chloride 108 mmol/L (98-107); Glucose 90 mg/dL (74-99); Non-African American GFR(CKD) >90 (>60 ml/min/1.73 sqM); Sodium 138 mmol/L (137-145)
--- NOTE | 2023-02-14 07:55 | P.PN ---
Subjective Progress Note Date: 02/14/23 Principal diagnosis: Malignant hypertension, Patient states headache has resolved. She has no complaints this morning. Objective - Vital Signs Vital signs: Vital Signs Temp 96.9 F L 02/14/23 03:51 Pulse 73 02/14/23 06:49 Resp 16 02/14/23 06:49 BP 151/72 02/14/23 06:49 Pulse Ox 97 02/14/23 06:49 FiO2 Intake & Output 02/13/23 02/14/23 02/14/23 18:59 06:59 18:59 Intake Total 370 Output Total 6800 3100 Balance -6430 -3100 Intake: IV 125 Invasive Line 1 125 Intake, IV Titration 125 Amount Lactated Ringers 1,000 ml 75 @ 75 mls/hr IV .[id number] [facility] Rx#:[id number] Magnesium Sulfate-Water 50 Pmx 4 gm In Water For Injection 1 100ml.bag @ 300 mls/hr IVPB ONCE ONE Rx#:[id number] Oral 120 Output: Urine 6800 3100 Other: # Voids 3 2 - Constitutional General appearance: Present: cooperative - EENT Eyes: Present: PERRLA ENT: Present: hearing grossly normal - Neck Neck: Present: normal ROM Thyroid: bilateral: normal size - Respiratory Respiratory: bilateral: CTA - Cardiovascular Rhythm: regular - Gastrointestinal General gastrointestinal: Present: normal bowel sounds - Genitourinary Genitourinary Comment(s): Incision clean and dry, intact, Steri-Strips applied. Fundus firm, midline, 16 week size. - Integumentary Integumentary: Present: normal - Neurologic Neurologic: Present: CNII-XII intact - Musculoskeletal Musculoskeletal: Present: strength equal bilaterally - Psychiatric Psychiatric: Present: A&O x's 3, appropriate affect, intact judgment & insight - Labs CBC & Chem 7: 02/12/23 19:55 02/14/23 06:49 Labs: Abnormal Lab Results - Last 24 Hours (Table) 02/14/23 Range/Units 06:49 Chloride 108 H (98-107) mmol/L Calcium 7.9 L (8.4-10.2) mg/dL Assessment and Plan Assessment: Blood pressure improving on hydralazine and Procardia 3 times a day. Diuresed over 4 L in the past 24 hours. Headache soft. Plan: Appreciate the hospitalist input. Consider discharge home patient pending repair assessment and agreement. Patient is to establish with a internal medicine physician for family practitioner outpatient. Time with Patient: Less than 30
[2023-02-14 08:30] VITALS: RESP 18
[2023-02-14] MEDS: hydrALAZINE HCL 25 MG TAB PO SCH ×2 (09:20→16:21)
[2023-02-14] MEDS: NIFEdipine 10 MG CAP PO SCH ×2 (09:21→16:21)
[2023-02-14 10:53] VITALS: TEMP 98
--- NOTE | 2023-02-14 13:12 | P.DS ---
Providers Date of admission: 02/12/23 19:31 Expected date of discharge: 02/14/23 Attending physician: Linda Shah Consults: 02/13/23 06:39 Consult Physician Stat Consulting Provider: Sourav Hernandez Consult Reason/Comments: high blood pressure Do you want consulting provider notified?: Yes Primary care physician: [facility] Course: This is a 38-year-old female who was delivered via repeat section approximate 8 days ago. During the course of the the patient was on labetalol 400 mg twice daily. She was discharged home postoperative day #4 on 200 mg daily. Despite this, she really presented to labor and delivery with a blood pressure of 190s over 100. She was admitted, given IV labetalol, and a medicine consult was obtained. All preeclamptic labs were within normal limits. Blood pressure medications have been monitored, she is currently stable on Procardia 20 mg 1 by mouth 3 times a day and hydralazine 25 mg 3 times a day. Patient did diurese for approximately 5 L of fluid after given 1 dose of Lasix. Her headache has resolved, she appears healthy and well, blood pressures now 130s to 140s over 70s range. Patient is judged to be in good condition for discharge home. The incision is clean and dry, Steri-Strips had been reapplied. There is one area that is draining a very small amount of yellow drainage. The wound is pr [place] with a cotton's tip applicator and is fully intact. However, I will start her on Keflex 500 mg 3 times a day as well. Patient will follow-up with me in the office and 5 days, she has an appointment. She will continue taking her blood pressure once or twice daily. I have given her prescriptions for Procardia 20 mg, hydralazine 25 mg, and Keflex 500 mg, all of which she will take 3 times a day. She will call me with the development of any headache, foul smelling or copious lochia, with the passage of large blood clots, with any blood pressures greater than 160/90, with any drainage or issues with the incision. She is reminded no intercourse tampons or douching. No heavy lifting, no driving. [place] infant will follow-up with professor of theatre as recommended. Assessment: Gestational hypertension with post hypertension, now stable on Procardia and hydralazine 3 times a day. Patient Condition at Discharge: Good Plan - Discharge Summary Discharge Rx Participant: No New Discharge Prescriptions: No Action HYDROcodone/APAP 5-325MG [[place] 5-325] 1 tab PO ONCE PRN PRN Reason: Pain Labetalol [Trandate] 100 mg PO BID Acetaminophen Tab [Tylenol Tab] 1,000 mg PO Q6HR Discharge Medication List Labetalol [Trandate] 100 mg PO BID 10/16/22 [History] Acetaminophen Tab [Tylenol Tab] 1,000 mg PO Q6HR 02/12/23 [History] HYDROcodone/APAP 5-325MG [[place] 5-325] 1 tab PO ONCE PRN 02/12/23 [History] Follow up Appointment(s)/Referral(s): Linda Shah MD [Primary Care Provider] - 1 Week
--- NOTE | 2023-02-14 13:27 | P.PN ---
Subjective Progress Note Date: 02/14/23 Subjective: Patient seen and examined at bedside. No acute events overnight. Pertinent positives and negatives as discussed above, a complete review of systems was performed and all other systems are negative. Vitals Signs Reviewed. General: nontoxic, no distress, appears at stated age Derm: warm, dry Head: atraumatic, normocephalic, symmetric Eyes: EOMI, no lid lag, anicteric sclera Mouth: no lip lesion, mucus membranes moist Cardiovascular: S1S2 reg, no murmur Lungs: CTA bilateral, no rhonchi, no rales , no accessory muscle use Abdominal: soft, nontender to palpation, no guarding, no appreciable organomegaly Ext: no gross muscle atrophy, no edema, no contractures Neuro: CN II-XI grossly intact, no focal neuro deficits Psych: Alert, oriented, appropriate affect Data Reviewed Today: Pertinent Labs: Potassium 4,, creatinine 0.52 Assessment and Plan: malignant hypertension now better controlled Lower extremity edema Status post Cervical neck pain, resolved -Nifedipine increased to 20 mg 3 times a day, continue hydralazine 25 mg 3 times a day -Blood pressure has improved -Pending discharge -Had extensive discussion with the primary service, patient will be followed up closely outpatient and antihypertensive therapy will be descalated accordingly Thank you for allowing us to participate in the care of this pleasant patient. Do not hesitate to contact us with questions. Someone can be reached from the [facility] hospitalist group all hours of the day at [phone] or via [employer]. Objective - Vital Signs Vital signs: Vital Signs Temp 98.0 F 02/14/23 12:28 Pulse 87 02/14/23 08:00 Resp 18 02/14/23 08:00 BP 130/74 02/14/23 12:28 Pulse Ox 97 02/14/23 08:00 FiO2 Intake & Output 02/13/23 02/14/23 02/14/23 18:59 06:59 18:59 Intake Total 370 Output Total 6800 3100 1050 Balance -6430 -3100 -1050 Intake: IV 125 Invasive Line 1 125 Intake, IV Titration 125 Amount Lactated Ringers 1,000 ml 75 @ 75 mls/hr IV .[id number] [facility] Rx#:[id number] Magnesium Sulfate-Water 50 Pmx 4 gm In Water For Injection 1 100ml.bag @ 300 mls/hr IVPB ONCE ONE Rx#:[id number] Oral 120 Output: Urine 6800 3100 1050 Other: # Voids 3 2 1 - Labs CBC & Chem 7: 02/12/23 19:55 02/14/23 06:49 Labs: Abnormal Lab Results - Last 24 Hours (Table) 02/14/23 Range/Units 06:49 Chloride 108 H (98-107) mmol/L Calcium 7.9 L (8.4-10.2) mg/dL
[2023-02-14 16:56] VITALS: BP 136/70; PULSE 98
== END 2023-02-14 17:01 | disposition home or self-care (01) | DRG 561 ==
LOC: FBPOP 19:09 → 4FBP 19:31
PROVIDERS: ADMIT Obstetrics & Gynecology Obstetrics; ATTEND Obstetrics & Gynecology
DX: O15.2 Eclampsia complicating the puerperium (principal); O16.5 Unspecified maternal hypertension, complicating the puerperium; I16.0 Hypertensive urgency; O99.215 Obesity complicating the puerperium; O24.93 Unspecified diabetes mellitus in the puerperium; E66.01 Morbid (severe) obesity due to excess calories; M54.2 Cervicalgia; O90.9 Complication of the puerperium, unspecified
CPT/HCPCS: 80048; 81001; 82565; 82570; 83615; 84156; 84450; 84460; 84520; 84550; 85025; 85384; 99215

== ENCOUNTER 2023-03-15 10:25 | Emergency (ER) | payer OTHER ==
[2023-03-15] MEDS ORDERED: SODIUM CHLORIDE 0.9% 1,000 ML IV STA (10:43)
[2023-03-15] MEDS ORDERED: ONDANSETRON 4 MG/2 ML VIAL IVP STA (10:49)
[2023-03-15] MEDS ORDERED: KETOROLAC 15 MG/ML 1 ML VIAL IVP STA (10:50)
[2023-03-15] MEDS ORDERED: MAG HYDROX/AL HYDROX/SIMETH 30 ML, HYOSCYAMINE ELIXIR 10 ML, LIDOCAINE 2% GLYDO JELLY 1... PO STA ×3 (10:50)
[2023-03-15] MEDS ORDERED: FAMOTIDINE 20 MG/2 ML VIAL IV SCH (11:00)
[2023-03-15 11:25] LABS: ALT 20 U/L (4-34); AST 18 U/L (14-36); African American GFR (CKD) >90 (>60 ml/min/1.73 sqM); Albumin 3.9 g/dL (3.5-5.0); Alkaline Phosphatase 81 U/L (38-126); Anion Gap 8 mmol/L; Blood Urea Nitrogen 16 mg/dL (7-17); Calcium 8.4 mg/dL (8.4-10.2); Carbon Dioxide 24 mmol/L (22-30); Chloride 106 mmol/L (98-107); Glucose 133 mg/dL (74-99); Lipase 50 U/L (23-300); Magnesium 1.9 mg/dL (1.6-2.3); Non-African American GFR(CKD) >90 (>60 ml/min/1.73 sqM); Potassium 4.6 mmol/L (3.5-5.1); Sodium 138 mmol/L (137-145); Total Bilirubin 0.8 mg/dL (0.2-1.3); Total Protein 6.9 g/dL (6.3-8.2)
[2023-03-15 11:26] LABS: Basophils % (A) 0 %; Eosinophils % (A) 0 %; HGB 13.3 gm/dL (11.4-16.0); Lymphocytes # (A) 0.4 k/uL (1.0-4.8); Lymphocytes % (A) 7 %; MCH 27.7 pg (25.0-35.0); MCHC 33.2 g/dL (31.0-37.0); MCV 83.5 fL (80.0-100.0); Mean Platelet Volume 6.8; Monocytes # (A) 0.3 k/uL (0-1.0); Monocytes % (A) 5 %; Neutrophils # (A) 4.7 k/uL (1.3-7.7); Neutrophils % (A) 87 %; Platelet Count 228 k/uL (150-450); RBC 4.79 m/uL (3.80-5.40); RDW 13.1 % (11.5-15.5); WBC 5.5 k/uL (3.8-10.6)
[2023-03-15 12:39] LABS: Appearance,Urine Clear (Clear); Bilirubin,Urine Negative (Negative); Blood,Urine Large (Negative); Color,Urine Yellow; Glucose,Urine (UA) Negative (Negative); Ketones,Urine Negative (Negative); Leukocyte Esterase,Urine Negative (Negative); Mucus,Urine Few /hpf; Nitrite,Urine Negative (Negative); PH, Urine 5.5 (5.0-8.0); Protein,Urine Trace (Negative); RBC,Urine >182 /hpf (0-5); Specific Gravity,Urine 1.029 (1.001-1.035); Squamous Epithelial Cell,Urine <1 /hpf (0-4); Urobilinogen,Urine <2.0 mg/dL (<2.0); WBC,Urine 2 /hpf (0-5)
--- NOTE | 2023-03-15 12:45 | ED ---
Abdominal Pain HPI - General Chief Complaint: Abdominal Pain Stated Complaint: NVD, chest pain Time Seen by Provider: 03/15/23 10:43 Source: patient Mode of arrival: ambulatory Limitations: no limitations - History of Present Illness Initial Comments: Patient is a 38-year-old female presents to the emergency department for abdominal pain. It started today in the upper abdomen. Patient has had nausea with several episodes of vomiting, nonbloody. Patient states her chest is sore while vomiting otherwise denies chest pain. She denies shortness of breath. She has had 4-5 episodes of watery diarrhea, nonbloody. Denies fever, chills, cold-like symptoms. Patient does have history of cholecystectomy. She denied alcohol use. - Related Data Home Medications Medication Instructions Recorded Confirmed Labetalol [Trandate] 100 mg PO BID 10/16/22 02/12/23 Acetaminophen Tab [Tylenol Tab] 1,000 mg PO Q6HR 02/12/23 02/12/23 HYDROcodone/APAP 5-325MG [[place] 1 tab PO ONCE PRN 02/12/23 02/12/23 5-325] Previous Rx's Medication Instructions Recorded Ibuprofen [Motrin] 800 mg PO Q8HR PRN #30 tab 03/15/23 Ondansetron Odt [Zofran Odt] 4 mg PO Q8HR PRN #10 tab 03/15/23 Allergies Allergy/AdvReac Type Severity Reaction Status Date / Time No Known Allergies Allergy Verified 03/15/23 10:37 Review of Systems ROS Statement: Those systems with pertinent positive or pertinent negative responses have been documented in the HPI. ROS Other: All systems not noted in ROS Statement are negative. Past Medical History Past Medical History: No Reported History Additional Past Medical History / Comment(s): gestationals diabetes, pre eclampsia History of Any Multi-Drug Resistant Organisms: None Reported Past Surgical History: Section Additional Past Surgical History / Comment(s): c section x2 Past Anesthesia/Blood Transfusion Reactions: No Reported Reaction Past Psychological History: No Psychological Hx Reported Smoking Status: Never smoker, Vaper Past Alcohol Use History: None Reported Past Drug Use History: None Reported - Past Family History Mother Family Medical History: No Reported History General Exam Limitations: no limitations Respiratory exam: Present: normal lung sounds bilaterally. Absent: respiratory distress, wheezes, rales, rhonchi, stridor Cardiovascular Exam: Present: regular rate, normal rhythm, normal heart sounds. Absent: systolic murmur, diastolic murmur, rubs, gallop, clicks GI/Abdominal exam: Present: soft, normal bowel sounds. Absent: distended, tenderness, guarding, rebound, rigid Psychiatric exam: Present: normal affect, normal mood Skin exam: Present: warm, dry, intact, normal color. Absent: rash Course Vital Signs 03/15/23 03/15/23 10:35 13:11 Temperature 97.4 F L 97.9 F Pulse Rate 81 74 Respiratory 20 16 Rate Blood Pressure 138/88 149/82 O2 Sat by Pulse 98 99 Oximetry Medical Decision Making - Medical Decision Making EKG taken at 11:15, interpreted by myself sinus rhythm Sinus rhythm Ventricular rate 73, MN interval 132, QRS duration 86, QTc 405 Was pt. sent in by a medical professional or institution (, PA, [employer], urgent care, hospital, or jail...) When possible be specific @ -No Did you speak to anyone other than the patient for history (EMS, parent, family, police, friend...)? What history was obtained from this source @ -No Did you review nursing and triage notes (agree or disagree)? Why? @ -I reviewed and agree with nursing and triage notes Were old charts reviewed (outside hosp., previous admission, EMS record, old EKG, old radiological studies, urgent care reports/EKG's, jail records)? Report findings @ -No old charts were reviewed Differential Diagnosis (chest pain, altered mental status, abdominal pain women, abdominal pain men, vaginal bleeding, weakness, fever, dyspnea, syncope, headac he, dizziness, GI bleed, back pain, seizure, CVA, palpatations, mental health)? @ -Differential Abdominal Pain Women: Appendicitis, Cholecystitis, diverticulosis, ischemic bowel, pancreatitis, hepatitis, UTI, gastroenteritis, AAA, incarcerated hernia, bowel obstruction, constipation, inflammatory bowel, hepatitis, peptic ulcer disease, splenic infarction, perforated viscus, vulvitis, ovarian torsion, PID, kidney stone, placenta abruption, this is not meant to be an all-inclusive list EKG interpreted by me (3pts min.). @ -As above X-rays interpreted by me (1pt min.). @ -None done CT interpreted by me (1pt min.). @ -None done U/S interpreted by me (1pt. min.). @ -None done What testing was considered but not performed or refused? (CT, X-rays, U/S, labs)? Why? @ -None What meds were considered but not given or refused? Why? @ -None Did you discuss the management of the patient with other professionals (professionals i.e. DrRubio, PA, [employer], lab, RT, psych nurse, hospice social worker, cartography/mapping technician, teacher, railway patrol officer, case liner)? Give summary @ -No Was smoking cessation discussed for >3mins.? @ -No Was critical care preformed (if so, how long)? @ -No Were there social determinants of health that impacted care today? How? (Homelessness, low income, unemployed, alcoholism, drug addiction, transportation, low edu. Level, literacy, decrease access to med. care, half-way, rehab)? @ -No Was there de-escalation of care discussed even if they declined (Discuss DNR or withdrawal of care, Hospice)? DNR status @ -No What co-morbidities impacted this encounter? (DM, HTN, Smoking, COPD, CAD, Cancer, CVA, ARF, Chemo, Hep., AIDS, mental health diagnosis, sleep apnea, morbid obesity)? @ -None Was patient admitted / discharged? Hospital course, mention meds given and route, prescriptions, significant lab abnormalities, going to OR and other pertinent info. @ -Discharged. Symptoms treated in the emergency department with resolution. I suspect symptoms related to viral etiology. Patient increase fluid intake and she'll be discharged with pain and nausea medication. Undiagnosed new problem with uncertain prognosis? @ -No Drug Therapy requiring intensive monitoring for toxicity (Heparin, Nitro, Insulin, Cardizem)? @ -No Were any procedures done? @ -No Diagnosis/symptom? @Abdominal pain, nausea and vomiting Acute, or Chronic, or Acute on Chronic? @ -Acute Uncomplicated (without systemic symptoms) or Complicated (systemic symptoms)? @ -Uncomplicated Side effects of treatment? @ -No Exacerbation, Progression, or Severe Exacerbation? @ -No Poses a threat to life or bodily function? How? (Chest pain, [place], [place], pneumonia, PE, COPD, DKA, ARF, appy, cholecystitis, CVA, Diverticulitis, Homicidal, Suicidal, threat to staff... and all critical care pts) @ -No Dr. Yeager is my attending - Lab Data Result diagrams: 03/15/23 11:02 03/15/23 11:02 Lab Results 03/15/23 03/15/23 03/15/23 Range/Units 11:02 11:02 11:02 WBC 5.5 (3.8-10.6) k/uL RBC 4.79 (3.80-5.40) m/uL Hgb 13.3 (11.4-16.0) gm/dL Hct 40.0 (34.0-46.0) % MCV 83.5 (80.0-100.0) fL MCH 27.7 (25.0-35.0) pg MCHC 33.2 (31.0-37.0) g/dL RDW 13.1 (11.5-15.5) % Plt Count 228 (150-450) k/uL MPV 6.8 Neutrophils % 87 % Lymphocytes % 7 % Monocytes % 5 % Eosinophils % 0 % Basophils % 0 % Neutrophils # 4.7 (1.3-7.7) k/uL Lymphocytes # 0.4 L (1.0-4.8) k/uL Monocytes # 0.3 (0-1.0) k/uL Eosinophils # 0.0 (0-0.7) k/uL Basophils # 0.0 (0-0.2) k/uL Sodium 138 (137-145) mmol/L Potassium 4.6 (3.5-5.1) mmol/L Chloride 106 (98-107) mmol/L Carbon Dioxide 24 (22-30) mmol/L Anion Gap 8 mmol/L BUN 16 (7-17) mg/dL Creatinine 0.75 (0.52-1.04) mg/dL Est GFR (CKD-EPI)AfAm >90 (>60 ml/min/1.73 sqM) Est GFR (CKD-EPI)NonAf >90 (>60 ml/min/1.73 sqM) Glucose 133 H (74-99) mg/dL Plasma Lactic Acid Micky 0.7 (0.7-2.0) mmol/L Calcium 8.4 (8.4-10.2) mg/dL Magnesium 1.9 (1.6-2.3) mg/dL Total Bilirubin 0.8 (0.2-1.3) mg/dL AST 18 (14-36) U/L ALT 20 (4-34) U/L Alkaline Phosphatase 81 (38-126) U/L Total Protein 6.9 (6.3-8.2) g/dL Albumin 3.9 (3.5-5.0) g/dL Lipase 50 (23-300) U/L Urine Color Urine Appearance (Clear) Urine pH (5.0-8.0) Ur Specific [place] (1.001-1.035) Urine Protein (Negative) Urine Glucose (UA) (Negative) Urine Ketones (Negative) Urine Blood (Negative) Urine Nitrite (Negative) Urine Bilirubin (Negative) Urine Urobilinogen (<2.0) mg/dL Ur Leukocyte Esterase (Negative) Urine RBC (0-5) /hpf Urine WBC (0-5) /hpf Ur Squamous Epith Cells (0-4) /hpf Urine Mucus (None) /hpf Influenza Type A (PCR) (Not Detectd) Influenza Type B (PCR) (Not Detectd) RSV (PCR) (Not Detectd) SARS-CoV-2 (PCR) (Not Detectd) Group A Strep (PCR) (Not Detectd) 03/15/23 03/15/23 03/15/23 Range/Units 11:02 11:02 12:21 WBC (3.8-10.6) k/uL RBC (3.80-5.40) m/uL Hgb (11.4-16.0) gm/dL Hct (34.0-46.0) % MCV (80.0-100.0) fL MCH (25.0-35.0) pg MCHC (31.0-37.0) g/dL RDW (11.5-15.5) % Plt Count (150-450) k/uL MPV Neutrophils % % Lymphocytes % % Monocytes % % Eosinophils % % Basophils % % Neutrophils # (1.3-7.7) k/uL Lymphocytes # (1.0-4.8) k/uL Monocytes # (0-1.0) k/uL Eosinophils # (0-0.7) k/uL Basophils # (0-0.2) k/uL Sodium (137-145) mmol/L Potassium (3.5-5.1) mmol/L Chloride (98-107) mmol/L Carbon Dioxide (22-30) mmol/L Anion Gap mmol/L BUN (7-17) mg/dL Creatinine (0.52-1.04) mg/dL Est GFR (CKD-EPI)AfAm (>60 ml/min/1.73 sqM) Est GFR (CKD-EPI)NonAf (>60 ml/min/1.73 sqM) Glucose (74-99) mg/dL Plasma Lactic Acid Micky (0.7-2.0) mmol/L Calcium (8.4-10.2) mg/dL Magnesium (1.6-2.3) mg/dL Total Bilirubin (0.2-1.3) mg/dL AST (14-36) U/L ALT (4-34) U/L Alkaline Phosphatase (38-126) U/L Total Protein (6.3-8.2) g/dL Albumin (3.5-5.0) g/dL Lipase (23-300) U/L Urine Color Yellow Urine Appearance Clear (Clear) Urine pH 5.5 (5.0-8.0) Ur Specific [place] 1.029 (1.001-1.035) Urine Protein Trace H (Negative) Urine Glucose (UA) Negative (Negative) Urine Ketones Negative (Negative) Urine Blood Large H (Negative) Urine Nitrite Negative (Negative) Urine Bilirubin Negative (Negative) Urine Urobilinogen <2.0 (<2.0) mg/dL Ur Leukocyte Esterase Negative (Negative) Urine RBC >182 H (0-5) /hpf Urine WBC 2 (0-5) /hpf Ur Squamous Epith Cells <1 (0-4) /hpf Urine Mucus Few H (None) /hpf Influenza Type A (PCR) Not Detected (Not Detectd) Influenza Type B (PCR) Not Detected (Not Detectd) RSV (PCR) Not Detected (Not Detectd) SARS-CoV-2 (PCR) Not Detected (Not Detectd) Group A Strep (PCR) NOT DETECTED (Not Detectd) Disposition Clinical Impression: Nausea and vomiting, Abdominal pain Disposition: HOME SELF-CARE Condition: Good Instructions (If sedation given, give patient instructions): Gastroenteritis (ED) Additional Instructions: Take medication as directed. Please follow-up with your primary care provider in 1-2 days. Return to the emergency department if you experience new, concerning, or worsening symptoms. Prescriptions: Ibuprofen [Motrin] 800 mg PO Q8HR PRN #30 tab PRN Reason: Pain Ondansetron Odt [Zofran Odt] 4 mg PO Q8HR PRN #10 tab PRN Reason: Nausea Is patient prescribed a controlled substance at d/c from ED?: No Referrals: None,Stated [Primary Care Provider] - 1-2 days
[2023-03-15 13:15] VITALS: BP 149/82; PULSE 74; RESP 16; TEMP 97.9
== END 2023-03-15 13:16 | disposition home or self-care (01) ==
LOC: EC 10:25
DX: R10.10 Upper abdominal pain, unspecified (principal); R11.2 Nausea with vomiting, unspecified; F17.290 Nicotine dependence, other tobacco product, uncomplicated; Z20.822 Contact with and (suspected) exposure to COVID-19
CPT/HCPCS: 36415; 93005; 87651; 80053; 83605; 83690; 83735; 85025; 81001; 87636; 99284; 96374; 96375 ×2; 96361 ×2; J2405; J1885

== ENCOUNTER → 2024-01-01 | Outpatient (CLI) | payer OTHER ==
--- NOTE | 2024-01-01 13:16 | CT ---
EXAMINATION TYPE: CT abdomen pelvis wo/w con CT DLP: 4598.4 mGycm, Automated exposure control for dose reduction was used. DATE OF EXAM: 01/01/2024 12:46 PM COMPARISON: None. CLINICAL INDICATION:Female, 38 years old with history of R10.32 LEFT LOWER QUADRANT PAIN; left lower quadrant pain TECHNIQUE: Axial CT abdomen pelvis wo/w con;Sagittal and coronal reformats were created on a [employer] workstation. Contrast used:100 mL of Isovue 300 with IV Contrast, (none if empty) Oral contrast used: with Oral Contrast (none if empty) FINDINGS: LOWER CHEST: Mildly enlarged heart for size. ABDOMEN LIVER: Unremarkable GALLBLADDER AND BILE DUCTS: Gallbladder surgically absent. PANCREAS: Unremarkable. SPLEEN: Splenule noted. ADRENAL GLANDS: Unremarkable. KIDNEYS AND URETERS: No evidence of hydronephrosis or renal calculus. The ureters are unremarkable. PELVIS BLADDER: Unremarkable REPRODUCTIVE: Enlarged uterus with lobular contour. Fluid is seen within the endometrium, tubal ligat ion clips bilaterally. ABDOMEN & PELVIS STOMACH AND BOWEL: No evidence of bowel obstruction. Appendix is normal. PERITONEUM/RETROPERITONEUM: No evidence of pneumoperitoneum or free fluid. VASCULATURE: No evidence of aortic aneurysm. MUSCULOSKELETAL: No acute osseous abnormalities LYMPH NODES: No gross evidence for lymphadenopathy. SOFT TISSUE/ABDOMINAL WALL: Unremarkable IMPRESSION: Enlarged uterus with lobular contour correlate for uterine fibroids. There is fluid within the endome trium. Consider evaluation of the endometrium and uterus with ultrasound. No other acute process in t he abdomen. No obstructive uropathy.
== END | disposition home or self-care (01) ==
LOC: RADCTMAIN 10:29
PROVIDERS: ATTEND Family Medicine
DX: N85.2 Hypertrophy of uterus (principal)
CPT/HCPCS: 74178; Q9967

== ENCOUNTER → 2024-05-08 | Outpatient (CLI) | payer OTHER ==
--- NOTE | 2024-05-08 10:56 | CT ---
EXAMINATION TYPE: CT shoulder LT wo con DATE OF EXAM: 05/08/2024 COMPARISON: None HISTORY: PAIN IN LEFT SHOULDER CT DLP: 807.80 mGycm Automated exposure control for dose reduction was used. FINDINGS: There is no fracture, dislocation, intraosseous, intra-articular or soft tissue abnormality IMPRESSION: NO SIGNIFICANT ABNORMALITY SEEN
== END | disposition home or self-care (01) ==
LOC: RADCTMAIN 09:08
PROVIDERS: ATTEND Family Medicine
DX: M25.512 Pain in left shoulder (principal); S49.82XS Other specified injuries of left shoulder and upper arm, sequela

== ENCOUNTER 2024-09-22 21:53 | Emergency (ER) | payer OTHER ==
[2024-09-22 22:07] VITALS: RESP 18; TEMP 98.6
--- NOTE | 2024-09-22 22:16 | ED ---
Psych HPI - General Source: patient, EMS, RN notes reviewed, old records reviewed Mode of arrival: EMS Limitations: no limitations - History of Present Illness MD Complaint: suicidal ideation -: hour(s) Associated Psychiatric Symptoms: depression, suicidal ideation Quality: constant Improves With: none Worsens With: none Context: not taking psychiatric medications, significant life stressor Associated Symptoms: denies other symptoms Treatments Prior to Arrival: none <Davonte Vanessa - Last Filed: 09/22/24 22:49> <Diana Floyd - Last Filed: 09/23/24 02:32> - General Chief Complaint: Psychiatric Symptoms Stated Complaint: SI Time Seen by Provider: 09/22/24 22:05 - History of Present Illness Initial Comments: This is a 39 female to the ER for evaluation patient presents today for evaluation of psychiatric illness patient is engaging in self-harm ( Davonte Vanessa) - Related Data Home Medications Medication Instructions Recorded Confirmed Labetalol [Trandate] 100 mg PO BID 10/16/22 02/12/23 Acetaminophen Tab [Tylenol Tab] 1,000 mg PO Q6HR 02/12/23 02/12/23 HYDROcodone/APAP 5-325MG [[place] 1 tab PO ONCE PRN 02/12/23 02/12/23 5-325] Previous Rx's Medication Instructions Recorded Ibuprofen [Motrin] 800 mg PO Q8HR PRN #30 tab 03/15/23 Ondansetron Odt [Zofran Odt] 4 mg PO Q8HR PRN #10 tab 03/15/23 Allergies Allergy/AdvReac Type Severity Reaction Status Date / Time No Known Allergies Allergy Verified 09/22/24 22:02 Review of Systems ROS Other: All systems not noted in ROS Statement are negative. <Davonte Vanessa - Last Filed: 09/22/24 22:49> ROS Other: All systems not noted in ROS Statement are negative. <Diana Floyd - Last Filed: 09/23/24 02:32> ROS Statement: Those systems with pertinent positive or pertinent negative responses have been documented in the HPI. Past Medical History Past Medical History: No Reported History Additional Past Medical History / Comment(s): gestationals diabetes, pre eclampsia History of Any Multi-Drug Resistant Organisms: None Reported Past Surgical History: Section Additional Past Surgical History / Comment(s): c section x2 Past Anesthesia/Blood Transfusion Reactions: No Reported Reaction Past Psychological History: No Psychological Hx Reported Smoking Status: Never smoker, Vaper Past Alcohol Use History: None Reported Past Drug Use History: None Reported - Past Family History Mother Family Medical History: No Reported History <Davonte Vanessa - Last Filed: 09/22/24 22:49> General Exam Limitations: no limitations General appearance: alert, in no apparent distress Head exam: Present: atraumatic, normocephalic, normal inspection Eye exam: Present: normal appearance, PERRL, EOMI. Absent: scleral icterus, conjunctival injection, periorbital swelling ENT exam: Present: normal exam, mucous membranes moist Neck exam: Present: normal inspection. Absent: tenderness, meningismus, lymphadenopathy Respiratory exam: Present: normal lung sounds bilaterally. Absent: respiratory distress, wheezes, rales, rhonchi, stridor Cardiovascular Exam: Present: regular rate, normal rhythm, normal heart sounds. Absent: systolic murmur, diastolic murmur, rubs, gallop, clicks GI/Abdominal exam: Present: soft, normal bowel sounds. Absent: distended, tenderness, guarding, rebound, rigid Extremities exam: Present: normal inspection, full ROM, normal capillary refill. Absent: tenderness, pedal edema, joint swelling, calf tenderness Back exam: Present: normal inspection Neurological exam: Present: alert, oriented X3, CN II-XII intact Psychiatric exam: Present: normal affect, normal mood Skin exam: Present: warm, dry, intact, normal color. Absent: rash <Davonte Vanessa - Last Filed: 09/22/24 22:49> Course <Davonte Vanessa - Last Filed: 09/22/24 22:49> Vital Signs 09/22/24 22:02 Temperature 98.6 F Pulse Rate 91 Respiratory 18 Rate Blood Pressure 172/100 O2 Sat by Pulse 98 Oximetry - Reevaluation(s) Reevaluation #1: 09/22/24 22:15 Records reviewed (Davonte Vanessa) Reevaluation #2: 09/22/24 22:49 Medically clear for psychiatric evaluation (Davonte Vanessa) Reevaluation #3: Was pt. sent in by a medical professional or institution (Dr., PA, [employer], urgent care, hospital, or intermediate...) When possible be specific @ -no Did you speak to anyone other than the patient for history (EMS, parent, family, police, friend...)? What history was obtained from this source @ -no Did you review nursing and triage notes (agree or disagree)? Why? @ -agree Are old charts reviewed (outside hosp., previous admission, EMS record, old EKG, old radiological studies, urgent care reports/EKG's, intermediate records)? Report findings @ -yes Differential Diagnosis (chest pain, altered mental status, abdominal pain women, abdominal pain men, vaginal bleeding, weakness, fever, dyspnea, syncope, headache, dizziness, GI bleed, back pain, seizure, CVA, palpatations, mental health, musculoskeletal)? @ -prior EKG interpreted by me (3pts min.). @ -yes X-rays interpreted by me (1pt min.). @ -yes negative for acute disease CT interpreted by me (1pt min.). @ -no U/S interpreted by me (1pt. min.). @ -no What testing was considered but not performed or refused? (CT, X-rays, U/S, labs)? Why? @ -none What meds were considered but not given or refused? Why? @ -none Did you discuss the management of the patient with other professionals (professionals i.e. SIERRA Hung, [employer], lab, RT, psych nurse, social research assistant, housekeeping associate, teacher, chief business development officer, skilled nursing case manager)? Give summary @ -no Was smoking cessation discussed for >3mins.? @ -no Was critical care preformed (if so, how long)? @ -no Were there social determinants of health that impacted care today? How? (Homelessness, low income, unemployed, alcoholism, drug addiction, transportation, low edu. Level, literacy, decrease access to med. care, prison, rehab)? @ -none Was there de-escalation of care discussed even if they declined (Discuss DNR or withdrawal of care, Hospice)? DNR status @ -no What co-morbidities impacted this encounter? (DM, HTN, Smoking, COPD, CAD, Cancer, CVA, ARF, Chemo, Hep., AIDS, mental health diagnosis, sleep apnea, morbid obesity)? @ -none Was patient admitted / discharged? Hospital course, mention meds given and route, prescriptions, significant lab abnormalities, going to OR and other pertinent info. @ - Undiagnosed new problem with uncertain prognosis? @ -no Drug Therapy requiring intensive monitoring for toxicity (Heparin, Nitro, Insulin, Cardizem)? @ -no Were any procedures done? @ -no Diagnosis/symptom? @ - Acute, or Chronic, or Acute on Chronic? @ -Acute Uncomplicated (without systemic symptoms) or Complicated (systemic symptoms)? @ -Complicated Side effects of treatment? @ -no Exacerbation, Progression, or Severe Exacerbation? @ -exacerbation Poses a threat to life or bodily function? How? (Chest pain, [place], [place], pneumonia, PE, COPD, DKA, ARF, appy, cholecystitis, CVA, Diverticulitis, Homicidal, Suicidal, threat to staff... and all critical care pts) @ -yes (Davonte Vanessa) Reevaluation #4: Differential Mental Health Depression, anxiety, bipolar, psychosis, schizophrenia, borderline personality, situational depression, adjustment disorder, behavioral disorder, brain tumor, malingering, substance abuse, encephalopathy, medication reaction, dementia, hypothyroidism, degenerative neurologic disorder, lupus.... This is not meant to be all-inclusive list (Davonte Vanessa) Medical Decision Making <Diana Floyd - Last Filed: 09/23/24 02:32> - Medical Decision Making Was patient admitted / discharged? Hospital course, mention meds given and route, prescriptions, significant lab abnormalities, going to OR and other pertinent info. @Patient in ED this evening awaiting EPS evaluation. Briefly, patient was brought in today petition by police for self-harm. Stated that "it was an attention thing". She is going through a divorce and she was already in with her boyfriend when this happened. Cut was superficial. This was "a one-time thing". Denies SI/HI delusions and hallucinations to both myself and EPS RN. Cleared for discharge by EPS. Patient well-appearing, pleasant and appropriate. Area where patient "cut" hersel is a superficial scratch on her wrist. Does note she has developed a migraine, which is typical for her, usually gets them every other day, like her usual migraines, and requests tylenol prior to discharge. Ordered toradol and tylenol for patient. Patient discharged in stable condition. Undiagnosed new problem with uncertain prognosis? @ -No Drug Therapy requiring intensive monitoring for toxicity (Heparin, Nitro, Insulin, Cardizem)? @ -No Were any procedures done? @ -No Diagnosis/symptom? @ Self harming behavior, migraine Acute, or Chronic, or Acute on Chronic? @ Acute Uncomplicated (without systemic symptoms) or Complicated (systemic symptoms)? @uncomplicated Side effects of treatment? @ -No Exacerbation, Progression, or Severe Exacerbation? @ -No Poses a threat to life or bodily function? How? (Chest pain, [place], [place], pneumonia, PE, COPD, DKA, ARF, appy, cholecystitis, CVA, Diverticulitis, Homicidal, Suicidal, threat to staff... and all critical care pts) @ -No (Diana Floyd) Disposition <Davonte Vanessa - Last Filed: 09/22/24 22:49> Is patient prescribed a controlled substance at d/c from ED?: No <Diana Floyd - Last Filed: 09/23/24 02:32> Clinical Impression: Self-harming behavior, Migraine Disposition: HOME SELF-CARE Condition: Good Instructions (If sedation given, give patient instructions): Suicide Prevention (ED) Additional Instructions: Please monitor yourself closely for new, changing or worsening symptoms, thoughts of wanting to kill yourself or kill or harm others, hearing or seeing things that are not there or that are telling you to harm yourself, if you do not feel safe at home, inability to tolerate/keep down fluids or your medications, inability to follow up with outpatient providers as instructed and should you experience these symptoms or should you have any further concerns for your wellbeing please return to the ED or call 911 immediately. Please follow safety plan provided by psychiatric nurse during your evaluation today. PLEASE call your primary care physician as soon as possible to arrange / discuss plan for followup appointment. Appointment in the next 1-3 days is strongly encouraged if possible. PLEASE let us know here before you leave if there is anything further we can do to be of any assistance. Take care and feel Better! Referrals: Serina Vick MD [Primary Care Provider] - 1-2 days
[2024-09-22] MEDS: LABETALOL 200 MG TAB PO SCH (22:59)
[2024-09-23] MEDS: ACETAMINOPHEN TAB 500 MG TAB PO STA (02:41)
[2024-09-23] MEDS: KETOROLAC 15 MG/ML 1 ML VIAL IM STA (02:41)
[2024-09-23 02:49] VITALS: BP 134/73; PULSE 89
== END 2024-09-23 02:48 | disposition home or self-care (01) ==
LOC: EC 21:53
DX: R45.88 Nonsuicidal self-harm (principal); G43.909 Migraine, unspecified, not intractable, without status migrainosus
CPT/HCPCS: 82075; 96372; 99285